=== PATIENT | female | born 1935 | race Caucasian/White ===

== ENCOUNTER 2021-05-20 12:16 | Outpatient (REF) | payer MEDICARE, SELFPAY ==
--- NOTE | ~2021-05-20 | XR_ITS ---
EXAMINATION: KNEE X-RAY CLINICAL INFORMATION: Pain COMPARISON: None TECHNIQUE: Standing AP view of both knees and lateral and sunrise view of the right knee FINDINGS: Right: No fracture or dislocation is seen. There may be mild varus angulation at the knee joint. There is arthritis at the medial femoral tibial and patellofemoral joints with joint space narrowing and osteophyte formation. There is an osteophyte at the quadriceps tendon insertion to the patella. There is a small joint effusion. There is a left knee replacement in satisfactory position. XR/XR knee standing BI IMPRESSION: Right knee arthritis. Satisfactory position of left knee replacement.
--- NOTE | ~2021-05-20 | XR_ITS ---
EXAMINATION: KNEE X-RAY CLINICAL INFORMATION: Pain COMPARISON: None TECHNIQUE: Standing AP view of both knees and lateral and sunrise view of the right knee FINDINGS: Right: No fracture or dislocation is seen. There may be mild varus angulation at the knee joint. There is arthritis at the medial femoral tibial and patellofemoral joints with joint space narrowing and osteophyte formation. There is an osteophyte at the quadriceps tendon insertion to the patella. There is a small joint effusion. There is a left knee replacement in satisfactory position. XR/XR knee RT 2V IMPRESSION: Right knee arthritis. Satisfactory position of left knee replacement.
== END 2021-05-20 12:17 | disposition home or self-care (01) ==
LOC: HO.HOSX 12:16
PROVIDERS: Visit Provider Orthopaedic Surgery
DX: M17.11 Unilateral primary osteoarthritis, right knee (principal); M20.12 Hallux valgus (acquired), left foot
CPT/HCPCS: 20610; 73560; 73565; 99202; J1100

== ENCOUNTER → 2021-06-10 14:24 | Outpatient (BNVA) | payer MEDICARE, SELFPAY | PROVIDERS: PCP Internal Medicine; Visit Provider Orthopaedic Surgery | DX: M17.11 Unilateral primary osteoarthritis, right knee (principal) | CPT/HCPCS: 99212; J7318 ==

== ENCOUNTER → 2021-08-19 14:42 | Outpatient (BNVA) | payer MEDICARE, SELFPAY | PROVIDERS: PCP Internal Medicine; Visit Provider Orthopaedic Surgery | DX: M17.11 Unilateral primary osteoarthritis, right knee (principal) | CPT/HCPCS: 20610; 99212; J1100 ==

== ENCOUNTER → 2021-08-26 09:15 | Outpatient (BNVA) | payer MEDICARE, SELFPAY | PROVIDERS: PCP Internal Medicine; Visit Provider Orthopaedic Surgery | DX: M17.11 Unilateral primary osteoarthritis, right knee (principal); Z96.652 Presence of left artificial knee joint | CPT/HCPCS: 99212 ==

== ENCOUNTER → 2021-09-03 11:46 | Outpatient (BNVA) | payer MEDICARE, SELFPAY | PROVIDERS: Visit Provider Orthopaedic Surgery | DX: M17.11 Unilateral primary osteoarthritis, right knee (principal) | CPT/HCPCS: 99212 ==

== ENCOUNTER → 2021-12-16 14:11 | Outpatient (BNVA) | payer MEDICARE, SELFPAY | PROVIDERS: Visit Provider Orthopaedic Surgery | DX: M17.11 Unilateral primary osteoarthritis, right knee (principal) | CPT/HCPCS: 99212 ==

== ENCOUNTER 2023-03-24 13:53 | Outpatient (AMB) | payer MEDICARE, SELFPAY ==
--- NOTE | 2023-03-24 13:54 | A.OFFVIS_ITS ---
Intake Intake Visit Reasons: EP, PRP injection Right Knee Intake Note: Franny is a 87 year old female who presents today for a right knee PRP injection. Allergies Penicillins Allergy (Severe, Verified 12/16/21 14:15) Hives Sulfa (Sulfonamide Antibiotics) Allergy (Mild, Verified 12/16/21 14:15) Hives HPI EP, PRP injection Right Knee HPI Details Right knee PRP. [facility] Social History (Updated 06/10/21 @ 14:34 by OZZY Watkins) Current occupational status: retired Current occupation: rt hand Physical Exam Extrem Other: skin c/d/i right knee Office Procedures Joint Injection/Drain Joint Injection/Drain Details: 60 ml peripheral blood draw. PRP isolation via centrifuge Injected 6 ml PRP. Site was prepped using aseptic technique. Patient tolerated the procedure well. Primary Site: right knee Approach Used: anterolateral Coding - Large joint Procedure code (CPT) selection complete Assessment & Plan Assessment & Plan (1) Osteoarthritis of right knee: Code(s): M17.11 - Unilateral primary osteoarthritis, right knee Plan: Severe right knee OA. Not a surgical candidate. Has benefitted from injections in the past. Coding Level of Care Code Est Pt Level 2 (15827) Diagnoses Osteoarthritis of right knee M17.11 CPT Codes Coding - Large joint: 94739 - Large joint ([id number])
== END 2023-03-24 15:41 | disposition home or self-care (01) ==
PROVIDERS: Visit Provider Orthopaedic Surgery
DX: M17.11 Unilateral primary osteoarthritis, right knee (principal)
CPT/HCPCS: 0232T; 20610

== ENCOUNTER 2024-02-15 14:12 | Outpatient (AMB) | payer MEDICARE, SELFPAY ==
--- NOTE | 2024-02-15 15:37 | MHC.OFFWIV ---
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 Patient Tobacco Use Status: Never used Tobacco Allergies Penicillins Allergy (Severe, Verified 02/15/24 15:45) Hives Sulfa (Sulfonamide Antibiotics) Allergy (Mild, Verified 02/15/24 15:45) Hives Do you need a note to return to daycare/school/sports/work: No HPI HPI Comments History of Present Illness Details History of Present Illness The patient is an 88-year-old female presenting with her with fall-related injury. The incident occurred yesterday at a restaurant with steps, where she tripped and fell while descending, aiming to see decorations. The patient landed primarily on her left side, attempting to catch her fall with her left hand. Post-fall, she reported pain and swelling in her left hand, wrist, and shoulder. Examination revealed a significant hematoma and swelling in the left hand, accompanied by difficulty in making a fist and performing certain wrist and shoulder movements. Moreover, no dizziness or lightheadedness was experienced prior to the fall, and she is not on any blood thinners. There is no history of loss of consciousness or head injury associated with the fall. The patient noted increased difficulty with certain movements of her hand and shoulder. She does not have a history mentioned of previous falls or similar injuries. Physical Exam General: Cooperative, healthy appearing, comfortable, no acute distress and well developed Orientation: Patient oriented x3 Limitations: Limited movement in left wrist and shoulder due to pain Head: Normal to inspection Ears: Hearing impaired Nose: Normal external nose present Face and sinus: Normal facial exam Eyes: Appearance normal, both eyes and all related structures Neck: Normal visual inspection and Yes full ROM Respiratory: Normal respiratory effort and able to speak in complete sentences. Clear to auscultation bilaterally Cardiovascular: Regular rate and rhythm. Normal S1 and S2 Skin: Edema and hematoma noted on left hand and wrist Neuro: Patient oriented x3 Extremities: left wrist, moderate-sized hematoma on dorsal aspect of radial side at the base of the thumb. Thumb has full range of motion however with pain. Remainder of fingers have full range of motion and neurovascularly intact. Patient has limited range of motion of her wrist, notably with flexion extension and ulnar and radial deviation. Left Elbow has full range of motion and no tenderness to palpation. Left shoulder, patient unable to forward flex past 90 degrees, negative beer can, negative belly lift-off, positive posterior lift-off. TTP at AC joint and insertion of biceps PFSH Social History (Updated 06/10/21 @ 14:34 by OZZY Watkins) Patient Tobacco Use Status: Never used Tobacco Current occupational status: retired Current occupation: rt hand Review of Systems Const All systems reviewed & are unremarkable except as noted in HPI and below Physical Exam Vital Signs: Last Vital Signs Pulse 96 02/15/24 15:44 BP 124/68 02/15/24 15:44 Pulse Ox 97 02/15/24 15:44 Oxygen Delivery Method Room Air 02/15/24 15:44 Assessment & Plan Assessment & Plan (1) Elbow pain, left: Code(s): M25.522 - Pain in left elbow Plan: Plan - Obtain x-rays of the left wrist, elbow, and shoulder to assess for potential fractures or dislocations. - Evaluate severity of any musculoskeletal injuries based on the imaging outcomes. - My review of x-rays show no fx or dislocation of left shoulder, left elbow or wrist. Likely sprained, will put wrist in velcro splint and shoulder in sling. Advised not to use either for more than 5-7 days as this could increase risk of frozen shoulder and decreased mobility of the wrist and elbow. Patient can use ice and Aleve for pain. - Provide pain management and instruct the patient to report any significant increase in pain or restriction of movement. - Advise the patient on safety precautions to prevent future falls. - Patient should follow up with her PCP for referral to Orthopedics. Patient was informed and verbally consented to the use of an ambient scribe for clinic note documentation during this visit. (2) Fall: Code(s): W19.XXXA - Unspecified fall, initial encounter Qualifiers: Encounter type: initial encounter Qualified Code(s): W19.XXXA - Unspecified fall, initial encounter Plan: As above (3) Shoulder pain, left: Code(s): M25.512 - Pain in left shoulder Qualifiers: Chronicity: acute Qualified Code(s): M25.512 - Pain in left shoulder Plan: As above (4) Wrist pain, left: Code(s): M25.532 - Pain in left wrist Plan: As above (5) Sprain of shoulder, left: Code(s): S43.402A - Unspecified sprain of left shoulder joint, initial encounter Qualifiers: Encounter type: initial encounter Shoulder sprain type: unspecified sprain Qualified Code(s): S43.402A - Unspecified sprain of left shoulder joint, initial encounter Plan: As above (6) Sprain of wrist, left: Code(s): S63.502A - Unspecified sprain of left wrist, initial encounter Qualifiers: Encounter type: initial encounter Qualified Code(s): S63.502A - Unspecified sprain of left wrist, initial encounter Plan: As above Orders: Orders XR shoulder LT min 2V Today M25.512 - Pain in left shoulder, W19.XXXA - Unspecified fall, initial encounter XR elbow LT min 3V Today M25.522 - Pain in left elbow, W19.XXXA - Unspecified fall, initial encounter Coding Level of Care Code New Pt Level 5 (53526) Procedure Only Diagnoses Elbow pain, left M25.522 Fall, initial encounter W19.XXXA Encounter type: initial encounter Acute pain of left shoulder M25.512 Chronicity: acute Wrist pain, left M25.532 Sprain of left shoulder, unspecified shoulder sprain type, initial encounter S43.402A Encounter type: initial encounter Shoulder sprain type: unspecified sprain Sprain of left wrist, initial encounter S63.502A Encounter type: initial encounter
[2024-02-15 15:44] VITALS: BP 124/68; PULSE 96; O2SAT 97
== END 2024-02-15 17:00 | disposition home or self-care (01) ==
PROVIDERS: Visit Provider Physician Assistant
DX: S43.402A Unspecified sprain of left shoulder joint, initial encounter (principal); S63.502A Unspecified sprain of left wrist, initial encounter; M25.522 Pain in left elbow; W19.XXXA Unspecified fall, initial encounter; M25.512 Pain in left shoulder; M25.532 Pain in left wrist

== ENCOUNTER 2024-02-15 14:12 | Outpatient (REF) | payer MEDICARE, SELFPAY ==
--- NOTE | ~2024-02-15 | XR_ITS ---
EXAMINATION: XR WRIST, LEFT CLINICAL INFORMATION: M25.532 - Pain in left wrist COMPARISON: None available. TECHNIQUE: PA, lateral, and oblique views of the left wrist. FINDINGS: Severe first CMC arthritis. Mild-moderate triscaphe joint arthritis. There appears to be intercarpal joint space narrowing as well. MCP joint space narrowing. No evidence of acute fracture or dislocation. Soft tissue swelling present. XR/XR wrist LT min 3V IMPRESSION: Arthritis present. Severe first CMC arthritis. No radiographic evidence of acute fracture. Electronically signed by: Sher Berry MD 02/16/2024 01:49 PM JOSE
--- NOTE | ~2024-02-15 | XR_ITS ---
EXAMINATION: XR ELBOW, LEFT CLINICAL INFORMATION: M25.522 - Pain in left elbow COMPARISON: None available. TECHNIQUE: AP, lateral, and oblique views of the left elbow. FINDINGS: Alignment is anatomic. No visible acute fracture or dislocation. No significant joint effusion is seen. No suspicious lytic or blastic osseous lesion. No abnormal soft tissue calcification. XR/XR elbow LT min 3V IMPRESSION: No radiographic evidence of acute fracture. Electronically signed by: Sher Berry MD 02/16/2024 01:56 PM EST
--- NOTE | ~2024-02-15 | XR_ITS ---
EXAMINATION: XR SHOULDER, LEFT CLINICAL INFORMATION: W19.XXXA - Unspecified fall, initial encounter COMPARISON: None available. TECHNIQUE: Three views of the left shoulder. FINDINGS: Mild-moderate acromioclavicular arthritis. Mild-moderate glenohumeral joint arthritis, with joint space loss, acetabular subchondral cysts and sclerosis. No visible acute fracture or dislocation. No abnormal soft tissue calcification. XR/XR shoulder LT min 2V IMPRESSION: Mild-moderate acromioclavicular and glenohumeral arthritis. Electronically signed by: Sher Berry MD 02/16/2024 01:54 PM JOSE
== END 2024-02-15 14:13 | disposition home or self-care (01) ==
LOC: HO.HMGCX 14:12
PROVIDERS: PCP Internal Medicine; Visit Provider Physician Assistant
DX: M25.512 Pain in left shoulder (principal); M25.522 Pain in left elbow; M25.532 Pain in left wrist; S43.402A Unspecified sprain of left shoulder joint, initial encounter; S63.502A Unspecified sprain of left wrist, initial encounter; W19.XXXA Unspecified fall, initial encounter; M13.88 Other specified arthritis, other site; M13.812 Other specified arthritis, left shoulder
CPT/HCPCS: 73030; 73080; 73110; 99202

== ENCOUNTER 2024-04-02 10:21 | Outpatient (REF) | payer MEDICARE, SELFPAY ==
--- NOTE | ~2024-04-02 | XR_ITS ---
EXAMINATION: XR SHOULDER, LEFT CLINICAL INFORMATION: M25.512 - Pain in left shoulder COMPARISON: 02/15/2024. TECHNIQUE: Three views of the left shoulder. FINDINGS: No fracture, dislocation, or suspicious bone lesion. No malalignment. 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 Small undersurface spur is present. There is a small subacromial osteophyte with a minimally laterally downsloping acromion. There is no significant subacromial space narrowing. Remainder the bony structures appear intact. There is a large hiatus hernia in the retrocardiac region with air-fluid level. Ectasia and calcification of the aorta. XR/XR shoulder LT min 2V IMPRESSION: 1. No acute findings left shoulder. 2. 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 Electronically signed by: Ramez Carbajal MD 04/03/2024 03:43 PM JOSE
--- OUTSIDE RECORDS SUMMARY | 2024-04-02 11:13 | XMS_ITS | Encounter Summary ---
Author Organization [facility] Address [address] [place] [address] Care Team Providers Care Capacitor Tester Name Role Phone Mansi Carias MD Primary Care Provider [phone] Jennie Milian MD Unavailable [phone] Encounter Details Date Type Department Care Team Description 11/16/2016 Workers Compensation Specialist Report Medical Records [address] [place] [id number] Abstract, Provider Social History Tobacco Use Types Packs/Day Years Used Date Smoking Tobacco: Former Smokeless Tobacco: Never Comments:quit 1985 Alcohol Use Standard Drinks/Week Comments Yes 0 (1 standard drink = 0.6 oz pur e alcohol) a glass of wine, now and then Sex Assigned at Date Recorded Not on file Job Start Date Occupation Industry Not on file Not on file Not on file documented as of this encounter Plan of Treatment Not on file documented as of this encounter Visit Diagnoses Not on filedocumented in this encounter Care Teams Capacitor Tester Relationship Specialty Start Date End Date Mansi Carias MD [address] [place] [address] [phone] PCP - General 07/07/06 Jennie Milian MD [address] [place] [place] [address] [phone] Specialist Cardiology 09/13/22 documented as of this encounter
--- OUTSIDE RECORDS SUMMARY | 2024-04-02 11:13 | XMS_ITS | Encounter Summary ---
Author Organization [facility] Address [address] [place] [address] Care Team Providers Care Navy Seal Name Role Phone Mansi Carias MD Primary Care Provider [phone] Jennie Milian MD Unavailable [phone] Encounter Details Date Type Department Care Team Description 07/18/2016 Wellness Visit Medical Records [address] [place] [address] Mansi Carias MD [address] [place] [address] [phone] Social History Tobacco Use Types Packs/Day Years [...] on filedocumented in this encounter Care Teams Navy Seal Relationship Specialty Start Date End Date Mansi Carias MD [address] [place] [address] [phone] PCP - General 07/07/06 Jennie Milian MD [address] [place] [phone] Specialist Cardiology 09/13/22 documented as of this encounter
--- OUTSIDE RECORDS SUMMARY | 2024-04-02 11:13 | XMS_ITS | Encounter Summary ---
Author Organization [facility] Address [address] [place] [address] Care Team Providers Care Mat Machine Operator Name Role Phone Mansi Carias MD Primary Care Provider [phone] Jennie Milian MD Unavailable [phone] Encounter Details Date Type Department Care Team Description 01/21/2013 Guide Delegate Report Medical Records [address] [place] [address] David Russ Social History Tobacco Use Types Packs/Day Years [...] on filedocumented in this encounter Care Teams Mat Machine Operator Relationship Specialty Start Date End Date Mansi Carias MD [address] [place] [address] [phone] PCP - General 07/07/06 Jennie Milian MD [address] [place] [address] [phone] Specialist Cardiology 09/13/22 documented as of this encounter
--- OUTSIDE RECORDS SUMMARY | 2024-04-02 11:14 | XMS_ITS | Encounter Summary ---
Author Organization [facility] Address [address] [place] [address] Care Team Providers Care Transportation Logistics Internship Name Role Phone Mansi Carias MD Primary Care Provider [phone] Jennie Milian MD Unavailable [phone] Encounter Details Date Type Department Care Team Description 10/21/2009 Streaming Media Specialist Report Medical Records [address] [place] [address] Rebel Johnson Social History Tobacco Use Types Packs/Day Years Used Date Smoking Tobacco: Former Comments:quit 1985 Alcohol Use Standard Drinks/Week Comments [...] on filedocumented in this encounter Care Teams Transportation Logistics Internship Relationship Specialty Start Date End Date Mansi Carias MD [address] [place] [phone] PCP - General 07/07/06 Jennie Milian MD [address] [place] [address] [phone] Specialist Cardiology 09/13/22 documented as of this encounter
--- OUTSIDE RECORDS SUMMARY | 2024-04-02 11:14 | XMS_ITS | Encounter Summary ---
Author Organization [facility] Address [address] [place] [address] Care Team Providers Care Airport Clerk Name Role Phone Mansi Carias MD Primary Care Provider [phone] Jennie Milian MD Unavailable [phone] Reason for Visit * Reason Onset Date Comments Prior Authorization 03/16/2023 Encounter Details Date Type Department Care Team Description 03/16/2023 Telephone Pulmonology - [place] [address] [facility] [address] [place] [address] Whitney Hong MD [address] [place] [address] Prior Authorization Social History Tobacco Use Types Packs/Day Years Used Date Smoking Tobacco: Former Cigarettes 2.5 24 Smokeless Tobacco: Never Comments:quit 1985 Alcohol Use Standard Drinks/Week Comments Yes 0 (1 standard drink = 0.6 oz pur e alcohol) a glass of wine, now and then Sex Assigned at Date Recorded Not on file Job Start Date Occupation Industry Not on file Not on file Not on file documented as of this encounter Miscellaneous Notes * Telephone Encounter - Ailyn Holman M.A. - 04/19/2023 1:25 PM EST Denied for quantity limit Ailyn Holman Prior Auth Dep Ext [id number] * Telephone Encounter - Ailyn Holman M.A. - 03/17/2023 3:48 PM EST Insurance wanted more info Faxed back Ailyn Holman Prior Auth Dep Ext [id number] * Telephone Encounter - Ailyn Holman M.A. - 03/17/2023 1:33 PM EST Auth sent with cover my meds Dx:asthma Tried symbicort Cont of care Ailyn Holman Prior Auth Dep Ext [id number] * Telephone Encounter - Roxana Bautista - 03/16/2023 11:33 AM EST PRIOR AUTHORIZATION FOR FLUTICASONE SALMETEROL 113-14 MCG/ACT AEROSOL POWDER JOSÉ: [id number] documented in this encounter Plan of Treatment Not on file documented as of this encounter Visit Diagnoses Not on filedocumented in this encounter Care Teams Airport Clerk Relationship Specialty Start Date End Date Mansi Carias MD [address] [place] [address] [phone] PCP - General 07/07/06 Jennie Milian MD [address] [place] [address] [phone] Specialist Cardiology 09/13/22 documented as of this encounter
--- OUTSIDE RECORDS SUMMARY | 2024-04-02 11:14 | XMS_ITS | Encounter Summary ---
Author Organization [facility] Address [address] [place] [address] Care Team Providers Care Fixed Income Portfolio Manager Name Role Phone Mansi Carias MD Primary Care Provider [phone] Jennie Milian MD Unavailable [phone] Reason for Visit * Reason Onset Date Comments Prior Authorization 06/01/2022 Encounter Details Date Type Department Care Team Description 06/01/2022 Telephone Pulmonology - [place] [address] [facility] [address] [place] [address] Whitney Hong MD [address] [place] [address] Prior Authorization Social History Tobacco [...] encounter Miscellaneous Notes * Telephone Encounter - Whitney Hong MD - 06/02/2022 6:26 PM EDT Resend script * Telephone Encounter - Dov Barroso CMA - 06/02/2022 8:06 AM EDT Please do rx script JAN 03/29/22 NOV 09/26/22 * Telephone Encounter - Krissy López - 06/01/2022 1:24 PM EDT Prior Authorization for Medication-do not complete and send this encounter unless you have the fax from the pharmacy. Is this a Cover My Meds request: Yes -- Moore Code [id number] Name of Medication FLUTICASONE-SALMETEROL Dose of Medication 113-14 MCG/ACT AEROSOL POWDER What is the RX # from the faxed refill? How does patient take this med? What Pharmacy did the fax come from: [facility] Pharmacy fax #: [phone] [employer] Information from fax: What Prescription Plan does the patient have? BIN/PCN if applicable: Cardholder ID: Person Code: Relationship Code: Help desk phone: documented in this encounter Plan of Treatment Not on file documented as of this encounter Visit Diagnoses Diagnosis Mild persistent asthma, unspecified whether complicated- Primary documented in this encounter Care Teams Fixed Income Portfolio Manager Relationship Specialty Start Date End Date Mansi Carias MD [address] [place] [phone] PCP - General 07/07/06 Jennie Milian MD [address] [place] [phone] Specialist Cardiology 09/13/22 documented as of this encounter
--- OUTSIDE RECORDS SUMMARY | 2024-04-02 11:14 | XMS_ITS | Encounter Summary ---
Author Organization [facility] Address [address] [place] [address] Care Team Providers Care Game Engineer Name Role Phone Mansi Carias MD Primary Care Provider [phone] Jennie Milian MD Unavailable [phone] Encounter Details Date Type Department Care Team Description 09/22/2017 Painting Manager Report Medical Records [address] [place] [address] Anthony Brown MD Social History Tobacco Use Types Packs/Day Years [...] on filedocumented in this encounter Care Teams Game Engineer Relationship Specialty Start Date End Date Mansi Carias MD [address] [place] [address] [phone] PCP - General 07/07/06 Jennie Milian MD [address] [place] [address] [phone] Specialist Cardiology 09/13/22 documented as of this encounter
--- OUTSIDE RECORDS SUMMARY | 2024-04-02 11:14 | XMS_ITS | Encounter Summary ---
Author Organization [facility] Address [address] [place] [address] Care Team Providers Care Flat Bed Knitter Name Role Phone Mansi Carias MD Primary Care Provider [phone] Jennie Milian MD Unavailable [phone] Encounter Details Date Type Department Care Team Description 12/15/2015 Healthcare Interpreter Report Medical Records [address] [place] [phone] Fausto Armando MD Social History Tobacco Use Types Packs/Day [...] on filedocumented in this encounter Care Teams Flat Bed Knitter Relationship Specialty Start Date End Date Mansi Carias MD [address] [place] [address] [phone] PCP - General 07/07/06 Jennie Milian MD [address] [place] [address] [phone] Specialist Cardiology 09/13/22 documented as of this encounter
--- OUTSIDE RECORDS SUMMARY | 2024-04-02 11:14 | XMS_ITS | Encounter Summary ---
Author Organization [facility] Address [address] [place] [address] Care Team Providers Care Freezer Operator Name Role Phone Mansi Carias MD Primary Care Provider [phone] Jennie Milian MD Unavailable [phone] Encounter Details Date Type Department Care Team Description 10/21/2022 Telephone Adult Medicine [address] [phone] Mansi Carias MD [address] [place] [address] [phone] Social History Tobacco Use Types Packs/Day Years [...] file Not on file Not on file COVID-19 Exposure Response Date Recorded In the last 10 days, have jason pink been in contact with someone who was confirmed or suspected to have Coronavirus/COVID-19? No / Unsure 10/12/2022 2:23 PM EDT documented as of this encounter Plan of Treatment Not on file documented as of this encounter Visit Diagnoses Not on filedocumented in this encounter Care Teams Freezer Operator Relationship Specialty Start Date End Date Mansi Carias MD [address] [place] [phone] PCP - General 07/07/06 Jennie Milian MD [address] [place] [phone] Specialist Cardiology 09/13/22 documented as of this encounter
--- OUTSIDE RECORDS SUMMARY | 2024-04-02 11:14 | XMS_ITS | Encounter Summary ---
Author Organization [facility] Address [address] [place] [address] Care Team Providers Care Manager Of Quality Name Role Phone Mansi Carias MD Primary Care Provider [phone] Jennie Milian MD Unavailable [phone] Encounter Details Date Type Department Care Team Description 03/23/2016 Business Doc Medical Records [address] [place] [address] Abstract, Provider Social History Tobacco Use Types [...] on filedocumented in this encounter Care Teams Manager Of Quality Relationship Specialty Start Date End Date Mansi Carias MD [address] [place] [address] [phone] PCP - General 07/07/06 Jennie Milian MD [address] [place] [address] [phone] Specialist Cardiology 09/13/22 documented as of this encounter
--- OUTSIDE RECORDS SUMMARY | 2024-04-02 11:14 | XMS_ITS | Encounter Summary ---
Author Organization [facility] Address [address] [place] [address] Care Team Providers Care Valving Machine Operator Name Role Phone Mansi Carias MD Primary Care Provider [phone] Jennie Milian MD Unavailable [phone] Encounter Details Date Type Department Care Team Description 04/19/2010 Attendant [facility] Report Medical Records [address] [place] [address] Daniel June MD Social History Tobacco Use Types Packs/Day [...] on filedocumented in this encounter Care Teams Valving Machine Operator Relationship Specialty Start Date End Date Mansi Carias MD [address] [place] [address] [phone] PCP - General 07/07/06 Jennie Milian MD [address] [place] [address] [phone] Specialist Cardiology 09/13/22 documented as of this encounter
--- OUTSIDE RECORDS SUMMARY | 2024-04-02 11:14 | XMS_ITS | Encounter Summary ---
Author Organization [facility] Address [address] [place] [address] Care Team Providers Care Change Director Name Role Phone Mansi Carias MD Primary Care Provider [phone] Jennie Milian MD Unavailable [phone] Encounter Details Date Type Department Care Team Description 10/17/2022 Orders Only Adult Medicine [address] [phone] Mansi Carias MD [address] [place] [address] [phone] Aortic root dilatation (HCC) (Primary Dx) Social History Tobacco Use Types Packs/Day Years [...] Recorded In the last 10 days, have yo u been in contact with someone who was confirmed or suspected to have Coronavirus/COVID-19? No / Unsure 10/12/2022 2:23 PM EDT documented as of this encounter Plan of Treatment Not on file documented as of this encounter Visit Diagnoses Diagnosis Aortic root dilatation (HCC)- Primary Aortic ectasia, unspecified site documented in this encounter Care Teams Change Director Relationship Specialty Start Date End Date Mansi Carias MD [address] [place] [address] [phone] PCP - General 07/07/06 Jennie Milian MD [address] [place] [address] [phone] Specialist Cardiology 09/13/22 documented as of this encounter
--- OUTSIDE RECORDS SUMMARY | 2024-04-02 11:14 | XMS_ITS | Encounter Summary ---
Author Organization [facility] Address [address] [place] [address] Care Team Providers Care Diamond Die Polisher Name Role Phone Mansi Carias MD Primary Care Provider [phone] Jennie Milian MD Unavailable [phone] Encounter Details Date Type Department Care Team Description 07/30/2009 Business Doc Medical Records [address] [place] [address] 0[address] Abstract, Provider Social History Tobacco Use Types [...] on filedocumented in this encounter Care Teams Diamond Die Polisher Relationship Specialty Start Date End Date Mansi Carias MD [address] [place] [address] [phone] PCP - General 07/07/06 Jennie Milian MD [address] [place] [address] [phone] Specialist Cardiology 09/13/22 documented as of this encounter
--- OUTSIDE RECORDS SUMMARY | 2024-04-02 11:14 | XMS_ITS | Encounter Summary ---
Author Organization [facility] Address [address] [place] [address] Care Team Providers Care Devil Dog Name Role Phone Mansi Carias MD Primary Care Provider [phone] Jennie Milian MD Unavailable [phone] Encounter Details Date Type Department Care Team Description 08/19/2009 Lathe Winder Report Medical Records [address] [place] [address] Rebel Johnson Social History Tobacco Use Types [...] on filedocumented in this encounter Care Teams Devil Dog Relationship Specialty Start Date End Date Mansi Carias MD [address] [place] [address]20 PCP - General 07/07/06 Jennie Milian MD [address] [place] [address] [phone] Specialist Cardiology 09/13/22 documented as of this encounter
--- OUTSIDE RECORDS SUMMARY | 2024-04-02 11:14 | XMS_ITS | Encounter Summary ---
Author Organization [facility] Address [address] [place] [address] Care Team Providers Care Card Folder Name Role Phone Mansi Carias MD Primary Care Provider [phone] Jennie Milian MD Unavailable [phone] Reason for Visit * Reason Comments E-prescribe Rx Request Encounter Details Date Type Department Care Team Description 04/11/2022 Refill Adult Medicine [facility] [address] [place] [address] [phone] Bruno Townsend, PAJennaC [address] [place] [address] [phone] E-prescribe Rx Request Social History Tobacco Use Types Packs/Day Years [...] suspected to have Coronavirus/COVID-19? No / Unsure 03/29/2022 2:00 PM EST documented as of this encounter Miscellaneous Notes * Telephone Encounter - Amelie Godinez M.A. - 04/12/2022 2:04 PM EST Last office visit 03/14/22 Next office visit 09/12/22 Lab Results Component Value Date ALB 3.8 06/19/2018 SGOT 17 02/03/2021 SGPT 16 02/03/2021 TBILI 0.5 06/19/2018 ALKPHOS 65 06/19/2018 TP 6.4 06/19/2018 * Telephone Encounter - Nurys Bowen - 04/12/2022 1:55 PM EST PATIENT STATES THEY DO NO HAVE ANYMORE MEDICATION. Patient would like script to be: E-PRESCRIBED/FAXED TO PHARMACY WHEN WAS THE PATIENT'S LAST APPOINTMENT IN ADULT MEDICINE? 03/14/22 WHEN WAS THE LAST TIME THE PATIENT SAW THEIR PCP? Same as above Does patient have an upcoming appointment? Yes 09/12/22 (THE MEDICATION REQUESTED IS ON THE MED LIST ABOVE) All of the medications requested were on the CURRENT MEDS list Did you check the Pharmacy information above?: YES Patient wants: 30 -day supply Is this a mail order prescription request ? NO If the refill is from a FAXED refill request what is the RX # listed on the fax? N/A Patients current insurance carrier is: [place] / [place] / Product Type: MEDICARE [id number] documented in this encounter Plan of Treatment Not on file documented as of this encounter Visit Diagnoses Not on filedocumented in this encounter Care Teams Card Folder Relationship Specialty Start Date End Date Mansi Carias MD [address] [place] [address] [phone] PCP - General 07/07/06 Jennie Milian MD [address] [place] [address] [phone] Specialist Cardiology 09/13/22 documented as of this encounter
--- OUTSIDE RECORDS SUMMARY | 2024-04-02 11:14 | XMS_ITS | Encounter Summary ---
Author Organization [facility] Address [address] [place] [address] Care Team Providers Care Account Manager Name Role Phone Mansi Carias MD Primary Care Provider [phone] Jennie Milian MD Unavailable [phone] Encounter Details Date Type Department Care Team Description 08/06/2014 Hand Binder Cutter Report Medical Records [address] [place] [address] Slava Melvin Social History Tobacco Use Types Packs/Day Years [...] on filedocumented in this encounter Care Teams Account Manager Relationship Specialty Start Date End Date Mansi Carias MD [address] [place] [address] [phone] PCP - General 07/07/06 Jennie Milian MD [address] [place] [address] [phone] Specialist Cardiology 09/13/22 documented as of this encounter
--- OUTSIDE RECORDS SUMMARY | 2024-04-02 11:14 | XMS_ITS | Encounter Summary ---
Author Organization [facility] Address [address] [place] [address] Care Team Providers Care Residential Nurse Name Role Phone Mansi Carias MD Primary Care Provider [phone] Jennie Milian MD Unavailable [phone] Encounter Details Date Type Department Care Team Description 08/29/2022 Hospital Medical Records [address] [place] [address] [facility] Social History Tobacco Use Types Packs/Day Years [...] on file documented as of this encounter Procedures Procedure Name Priority Date/Time Associated Diagnosis Comments OUTSIDE EKG Routine 08/29/2022 OUTSIDE LAB Routine 08/29/2022 OUTSIDE LAB Routine 08/29/2022 documented in this encounter Results * OUTSIDE LAB (08/29/2022) Provider Abstract LAB * OUTSIDE LAB (08/29/2022) Provider Abstract LAB * OUTSIDE EKG (08/29/2022) Provider Abstract CARDIOLOGY documented in this encounter Visit Diagnoses Not on filedocumented in this encounter Care Teams Residential Nurse Relationship Specialty Start Date End Date Mansi Carias MD [address] [place] [address] [phone] PCP - General 07/07/06 Jennie Milian MD [address] [place] [phone] Specialist Cardiology 09/13/22 documented as of this encounter
--- OUTSIDE RECORDS SUMMARY | 2024-04-02 11:14 | XMS_ITS | Encounter Summary ---
Author Organization [facility] Address [address] [place] [address] Care Team Providers Care Manager Van Name Role Phone Mansi Carias MD Primary Care Provider [phone] Jennie Milian MD Unavailable [phone] Reason for Visit * Reason Comments E-prescribe Rx Request Encounter Details Date Type Department Care Team Description 07/08/2018 Refill Adult Medicine [facility] [address] [place], [place] [phone] [facility] [address] [place], [place] [phone] E-prescribe Rx Request Social History Tobacco Use [...] Telephone Encounter - Amelie Godinez M.A. - 07/09/2018 9:05 AM EDT Lab Results Component Value Date NA 143 06/19/2018 K 3.9 06/19/2018 CO2 25 06/19/2018 CL 110 06/19/2018 BUN 17 06/19/2018 CREAT 1.44 06/19/2018 GLU 107 06/19/2018 CA 8.5 06/19/2018 GFR 35 06/19/2018 * Telephone Encounter - Alea Munoz - 07/08/2018 1:54 PM EDT Patient would like script to be: E-PRESCRIBED/FAXED TO PHARMACY WHEN WAS THE PATIENT'S LAST APPOINTMENT IN ADULT MEDICINE? 07/02/18 WHEN WAS THE LAST TIME THE PATIENT SAW THEIR PCP? Same as above Does patient have an upcoming appointment? Yes 12/03/18 (THE MEDICATION REQUESTED IS ON THE MED LIST ABOVE) All of the medications requested were on the CURRENT MEDS list Did you check the Pharmacy information above?: YES Patient wants: 90 -day supply Is this a mail order prescription request ? NO If the refill is from a FAXED refill request what is the RX # listed on the fax? N/A Patients current insurance carrier is: [place] / [place] / Product Type: MEDICARE [id number] documented in this encounter Plan of Treatment Not on file documented as of this encounter Visit Diagnoses Not on filedocumented in this encounter Care Teams Manager Van Relationship Specialty Start Date End Date Mansi Carias MD [address] [place] [address] PCP - General 07/07/06 Jennie Milian MD [address] [place] [phone] Specialist Cardiology 09/13/22 documented as of this encounter
--- OUTSIDE RECORDS SUMMARY | 2024-04-02 11:14 | XMS_ITS | Encounter Summary ---
Author Organization [facility] Address [address] [place] [address] Care Team Providers Care Pbx Supervisor Name Role Phone Mansi Carias MD Primary Care Provider [phone] Jennie Milian MD Unavailable [phone] Encounter Details Date Type Department Care Team Description 08/26/2021 Information Technology Coordinator Report Medical Records [address] [place] [address] [place] Hills MD Social History Tobacco Use Types Packs/Day [...] In the last 10 days, have jason u been in contact with someone who was confirmed or suspected to have Coronavirus/COVID-19? No / Unsure 08/18/2021 12:54 PM EDT documented as of this encounter Plan of Treatment Not on file documented as of this encounter Visit Diagnoses Not on filedocumented in this encounter Care Teams Pbx Supervisor Relationship Specialty Start Date End Date Mansi Carias MD [address] [place] [address] [phone] PCP - General 07/07/06 Jennie Milian MD [address] [place] [address] [phone] Specialist Cardiology 09/13/22 documented as of this encounter
--- OUTSIDE RECORDS SUMMARY | 2024-04-02 11:14 | XMS_ITS | Encounter Summary ---
Author Organization [facility] Address [address] [place] [address] Care Team Providers Care Tearoom Host/Hostess Name Role Phone Mansi Carias MD Primary Care Provider [phone] Jennie Milian MD Unavailable [phone] Encounter Details Date Type Department Care Team Description 11/21/2017 Automotive Maintenance Technician Report Medical Records [address] [place] [address] 44[address] Abstract, Provider Social History Tobacco Use Types [...] on filedocumented in this encounter Care Teams Tearoom Host/Hostess Relationship Specialty Start Date End Date Mansi Carias MD [address] [place] [address] [phone] PCP - General 07/07/06 Jennie Milian MD [address] [place] [address] [phone] Specialist Cardiology 09/13/22 documented as of this encounter
--- OUTSIDE RECORDS SUMMARY | 2024-04-02 11:14 | XMS_ITS | Clinical Summary ---
Author Organization [facility], Address [address] [place] [address] [place] [address] Phone Care Team Providers Care Mill Tender Second Operator Name Role Phone Mansi Carias MD Primary Care Provider [phone] Allergies Active Allergy Reactions Criticality Noted Date Comments Penicillins Rash Low 05/17/2019 Sulfa Antibiotics Rash,Itching Medium 05/29/2017 Medications sucralfate (CARAFATE) 1 g tablet Take 1 tablet by mouth 3 (three) times a day Active pravastatin (PRAVACHOL) 40 MG tablet Take 1 tablet by mouth 1 (one) time each day 7 Active oxybutynin XL (DITROPAN-XL) 10 MG 24 hr tablet Take 1 tablet by mouth 1 (one) time each day 6 Active [place] 3 1000 MG capsule Take 1,000 mg by mouth 1 (one) time each day Active montelukast (SINGULAIR) 10 MG tablet Take 1 tablet by mouth at bed time Active escitalopram (LEXAPRO) 10 MG tablet Take 10 mg by mouth 1 (one) time each day 6 Active buPROPion SR (WELLBUTRIN SR) 150 MG 12 hr tablet Take 150 mg by mouth 2 (two) times a day 7 Active amLODIPine (NORVASC) 5 MG tablet Take 5 mg by mouth 7 Active albuterol (2.5 MG/3ML) 0.083% nebulizer solution Take 1 vial by mouth every 4 (four) hours Active Fluad Quadrivalent 0.5 ML prefilled syringe ADM 0.5ML IM UTD 0 Active cholecalciferol (VITAMIN D-3) 25 MCG (1000 UT) tablet Take 1 tablet by mouth Active pantoprazole (PROTONIX) 40 MG EC tablet TAKE 1 TABLET(40 MG) BY MOUTH TWICE DAILY. DO NOT CRUSH, CHEW, OR SPLIT 180 tablet 3 2 Active budesonide-formot armen (Symbicort) 160-4.5 MCG/ACT inhaler Inhale 2 puffs in the morning and 2 puffs in the evening. 1 Inhaler 11 3 Active Active Problems Problem Noted Date Diagnosed Date Ulcer of esophagus 07/12/2017 Overview (05/17/2019): Had EGDx2 after PPI, ulcer resoled, per GI ok to use PPI as needed Essential hypertension 05/02/2016 Stage 3b chronic kidney disease 01/21/2013 Overview (03/09/2020): Update for Diagnosis Load Cyst of thyroid 09/18/2006 Pure hypercholesterolemia 09/18/2006 Asthma 07/10/2006 Overview (05/17/2019): Follows with instrumentation engineer in [place], Dr. Egan Immunizations Name Administration Dates Next Due H1N1 Nasal 11/04/2017, 5,11/21/2013,2011 Influenza Split High Dose Preservative Free IM 12/27/2018,12/04/2016 Influenza TIV (IM) 11/27/2010, 0,12/12/2007,2006 Influenza Vaccine, Quadrival ent, Adjuvanted 11/10/2019 Influenza, Quadrivalent, Pre servative Free 12/11/2020,02/19/2020 Pfizer SARS-COV-2 01/19/2021,11/13/2020 Pneumococcal Conjugate 13-Valent 12/27/2017 Pneumococcal, Unspecified 12/12/2014,12/08/2011 Shingrix 01/10/2020 Zoster 11/10/2019,08/04/2011 Family History Medical History Relation Comments Cancer Child daughter thyroid , lymphoma Heart disease Father CA, CAD Cancer Mother basal cell Hypertension Mother Cancer Sibling brother's one wi th colon and the other with lung Relation Status Comments Child Father Mother Sibling Social History Tobacco Use Types Packs/Day Years Used Date Smoking Tobacco: Former Smokeless Tobacco: Never Comments Unknown Sex and Gender Information Value Date Recorded Sex Assigned at Not on file Legal Sex Female 4:33 PM EST Gender Identity Not on file Sexual Orientation Not on file Last Filed Vital Signs Vital Sign Reading Time Taken Comments Blood Pressure 148/78 09/01/2021 4:16 PM EDT Pulse - - Temperature - - Respiratory Rate - - Oxygen Saturation - - Inhaled Oxygen Concentration - - Weight 74.4 kg (164 lb) 09/19/2018 12:00 PM EDT Height 160 cm (5' 3 ) 09/19/2018 12:00 PM EDT Body Mass Index 29.05 09/19/2018 12:00 PM EDT Plan of Treatment Health Maintenance Due Date Last Done Comments Pneumococcal Vaccine: 65+ Years (2 of 2 - PPSV23 or PCV20) 02/21/2018 12/27/2017, 12/12/2014, 12/08/2011 Influenza Vaccine (#1) 2023 , 02/19/2020, 11/10/2019, Additional history exists Hepatitis B Vaccine Aged Out No longe r eligible based on patient's age to complete this topic Insurance MEDICARE [facility] Care Teams Mill Tender Second Operator Relationship Specialty Start Date End Date Mansi Carias MD PCP - General 01/08/19
--- OUTSIDE RECORDS SUMMARY | 2024-04-02 11:14 | XMS_ITS | Encounter Summary ---
Author Organization [facility] Address [address] [place] [address] Care Team Providers Care Child Welfare Specialist Name Role Phone Mansi Carias MD Primary Care Provider [phone] Jennie Milian MD Unavailable [phone] Encounter Details Date Type Department Care Team Description 04/19/2010 Systems Security Consultant Report Medical Records [address] [place] [address] 29164 Daniel June MD Social History Tobacco Use [...] on filedocumented in this encounter Care Teams Child Welfare Specialist Relationship Specialty Start Date End Date Mansi Carias MD [address] [place] [address] [phone] PCP - General 07/07/06 Jennie Milian MD [address] [place] [address] [phone] Specialist Cardiology 09/13/22 documented as of this encounter
--- OUTSIDE RECORDS SUMMARY | 2024-04-02 11:14 | XMS_ITS | Encounter Summary ---
Author Organization [facility] Address [address] [place] [address] Care Team Providers Care Wood Machine Carver Name Role Phone Mansi Carias MD Primary Care Provider [phone] Jennie Milian MD Unavailable [phone] Reason for Visit * Reason Comments E-prescribe Rx Request Encounter Details Date Type Department Care Team Description 10/03/2022 Refill Adult Medicine [facility] [address] [place] [address] [phone] Dany Price, LIQUID COMPOUNDER [address] [place], [place] [phone] E-prescribe Rx Request Social History Tobacco Use [...] suspected to have Coronavirus/COVID-19? No / Unsure 09/29/2022 1:20 PM EDT documented as of this encounter Miscellaneous Notes * Telephone Encounter - Mariah Do M.A. - 10/03/2022 3:39 PM EDT Lab Results Component Value Date NA 141 02/03/2021 K 3.9 02/03/2021 CO2 26 02/03/2021 CL 109 02/03/2021 BUN 18 02/03/2021 CREAT 1.31 02/03/2021 GLU 109 02/03/2021 CA 8.8 02/03/2021 GFR 38 02/03/2021 Pending appt with pcp 10/24/22 Last appt 09/05/22 documented in this encounter Plan of Treatment Not on file documented as of this encounter Visit Diagnoses Not on filedocumented in this encounter Care Teams Wood Machine Carver Relationship Specialty Start Date End Date Mansi Carias MD [address] [place] [address] [phone] PCP - General 07/07/06 Jennie Milian MD [address] [place] [address] [phone] Specialist Cardiology 09/13/22 documented as of this encounter
--- OUTSIDE RECORDS SUMMARY | 2024-04-02 11:14 | XMS_ITS | Encounter Summary ---
Author Organization [facility] Address [address] [place] [address] Care Team Providers Care Probe Operator Name Role Phone Mansi Carias MD Primary Care Provider [phone] Jennie Milian MD Unavailable [phone] Reason for Visit * Reason Onset Date Comments refill request 08/14/2018 Encounter Details Date Type Department Care Team Description 08/14/2018 Refill Adult Medicine [address] [phone] Mansi Carias MD [address] [place] [address] [phone] refill request Social History Tobacco Use Types Packs/Day Years [...] encounter Miscellaneous Notes * Telephone Encounter - Cherelle Riggs M.A. - 08/14/2018 10:54 AM EDT Last OV 07/02/18 Next OV 12/03/18 Lab Results Component Value Date ALB 3.8 06/19/2018 SGOT 19 06/19/2018 SGPT 21 06/19/2018 TBILI 0.5 06/19/2018 ALKPHOS 65 06/19/2018 TP 6.4 06/19/2018 * Telephone Encounter - Kia Alatorre - 08/14/2018 10:39 AM EDT Patient would like script to be: [...] / Plan[place] / Product Type: MEDICARE [id number] documented in this encounter Plan of Treatment Not on file documented as of this encounter Visit Diagnoses Not on filedocumented in this encounter Care Teams Probe Operator Relationship Specialty Start Date End Date Mansi Carias MD [address] [place] [address] 0[address]20 PCP - General 07/07/06 Jennie Milian MD [address] [place] [address] 0[address]20 Specialist Cardiology 09/13/22 documented as of this encounter
--- OUTSIDE RECORDS SUMMARY | 2024-04-02 11:14 | XMS_ITS | Encounter Summary ---
Author Organization [facility] Address [address] [place] [address] Phone Care Team Providers Care Head Scorer Name Role Phone Mansi Carias MD Primary Care Provider [phone] Encounter Details Date Type Department Care Team (Late st Contact Info) Description 10/03/2022 Documentation Only [facility] [address] [place] [phone] Anthony Brown MD [address] [place] [address] Social History Tobacco Use Types Packs/Day Years Used Date Smoking Tobacco: Former Smokeless Tobacco: Never Comments Unknown Sex and Gender Information Value Date Recorded Sex Assigned at Not on file Legal Sex Female 4:33 PM EST Gender Identity Not on file Sexual Orientation Not on file documented as of this encounter Plan of Treatment Not on file documented as of this encounter Visit Diagnoses Not on filedocumented in this encounter Care Teams Head Scorer Relationship Specialty Start Date End Date Mansi Carias MD PCP - General 01/08/19 documented as of this encounter
--- OUTSIDE RECORDS SUMMARY | 2024-04-02 11:14 | XMS_ITS | Encounter Summary ---
Author Organization [facility] Address [address] [place] [address] Care Team Providers Care Central Sterilization Technician Name Role Phone Mansi Carias MD Primary Care Provider [phone] Jennie Milian MD Unavailable [phone] Encounter Details Date Type Department Care Team Description 09/22/2013 Near Eastern Archaeology Lecturer Report Medical Records [address] [place] [address] [phone] Daniel June MD Social History Tobacco Use [...] on filedocumented in this encounter Care Teams Central Sterilization Technician Relationship Specialty Start Date End Date Mansi Carias MD [address] [place] [address] [phone] PCP - General 07/07/06 Jennie Milian MD [address] [place] [address] [phone] Specialist Cardiology 09/13/22 documented as of this encounter
--- OUTSIDE RECORDS SUMMARY | 2024-04-02 11:14 | XMS_ITS | Encounter Summary ---
Author Organization [facility] Address [address] [place] [address] Care Team Providers Care Chemical Pumper Name Role Phone Mansi Carias MD Primary Care Provider [phone] Jennie Milian MD Unavailable [phone] Encounter Details Date Type Department Care Team Description 03/12/2013 Business Doc Medical Records [address] [place] [id number] Abstract, Provider Social History Tobacco Use Types [...] on filedocumented in this encounter Care Teams Chemical Pumper Relationship Specialty Start Date End Date Mansi Carias MD [address] [place] [address] [phone] PCP - General 07/07/06 Jennie Milian MD [address] [place] [address] [phone] Specialist Cardiology 09/13/22 documented as of this encounter
--- OUTSIDE RECORDS SUMMARY | 2024-04-02 11:14 | XMS_ITS | Encounter Summary ---
Author Organization [facility] Address [address] [place] [address] Care Team Providers Care Travel Manager Name Role Phone Mansi Carias MD Primary Care Provider [phone] Jennie Milian MD Unavailable [phone] Encounter Details Date Type Department Care Team Description 08/19/2021 Engine Repairer Service Report Medical Records [address] [place] [address] [place] Hills MD Social History Tobacco Use [...] on filedocumented in this encounter Care Teams Travel Manager Relationship Specialty Start Date End Date Mansi Carias MD [address] [place] [address] [phone] PCP - General 07/07/06 Jennie Milian MD [address] [place] [address] 87187 Specialist Cardiology 09/13/22 documented as of this encounter
--- OUTSIDE RECORDS SUMMARY | 2024-04-02 11:14 | XMS_ITS | Encounter Summary ---
Author Organization [facility] Address [address] [place] [address] Care Team Providers Care Choirmaster Name Role Phone Mansi Carias MD Primary Care Provider [phone] Jennie Milian MD Unavailable [phone] Encounter Details Date Type Department Care Team Description 02/08/2017 Ops Analyst Report Medical Records [address] [place] [id number] Anthony Brown MD Social History Tobacco Use [...] on filedocumented in this encounter Care Teams Choirmaster Relationship Specialty Start Date End Date Mansi Carias MD [address] [place] [address] [phone] PCP - General 07/07/06 Jennie Milian MD [address] [place] [address] [phone] Specialist Cardiology 09/13/22 documented as of this encounter
--- OUTSIDE RECORDS SUMMARY | 2024-04-02 11:15 | XMS_ITS | Encounter Summary ---
Author Organization [facility] Address [address] [place] [address] Care Team Providers Care Sports Commentator Name Role Phone Mansi Carias MD Primary Care Provider [phone] Jennie Milian MD Unavailable [phone] Reason for Visit * Reason Onset Date Comments Call From Md Office 08/13/2015 Encounter Details Date Type Department Care Team Description 08/13/2015 Telephone Adult Medicine [address] [phone] Mansi Carias MD [address] [place] [address] [phone] Call From Md Office Social History Tobacco Use Types Packs/Day Years [...] encounter Miscellaneous Notes * Telephone Encounter - Mansi Carias MD - 08/14/2015 3:41 PM EDT I discussed with this ID physician yesterday. I called again today and left a message with secretory * Telephone Encounter - Tatianna Babs - 08/13/2015 2:[address] Bernard would like a call back from Dr Carias at your convenience Thank you documented in this encounter Plan of Treatment Not on file documented as of this encounter Visit Diagnoses Not on filedocumented in this encounter Care Teams Sports Commentator Relationship Specialty Start Date End Date Mansi Carias MD [address] [place] [address] [phone] PCP - General 07/07/06 Jennie Milian MD [address] [place] [address] 36[address] Specialist Cardiology 09/13/22 documented as of this encounter
--- OUTSIDE RECORDS SUMMARY | 2024-04-02 11:15 | XMS_ITS | Encounter Summary ---
Author Organization [facility] Address [address] [place] [address] Care Team Providers Care Landscaping Supervisor Name Role Phone Mansi Carias MD Primary Care Provider [phone] Jennie Milian MD Unavailable [phone] Encounter Details Date Type Department Care Team Description 06/29/2020 Orders Only Radiology - [address] [phone] Mansi Carias MD [address] [place] [address] [phone] Social History Tobacco Use Types Packs/Day Years [...] on filedocumented in this encounter Care Teams Landscaping Supervisor Relationship Specialty Start Date End Date Mansi Carias MD [address] [place] [address] [phone] PCP - General 07/07/06 Jennie Milian MD [address] [place] [address] [phone] Specialist Cardiology 09/13/22 documented as of this encounter
--- OUTSIDE RECORDS SUMMARY | 2024-04-02 11:15 | XMS_ITS | Encounter Summary ---
Author Organization [facility] Address [address] [place] [address] Care Team Providers Care Storekeeper Engineering Name Role Phone Mansi Carias MD Primary Care Provider [phone] Jennie Milian MD Unavailable [phone] Reason for Visit * Reason Onset Date Comments Prior Authorization 04/14/2023 Encounter Details Date Type Department Care Team Description 04/14/2023 Telephone Pulmonology - [place] [address] [facility] [address] [place] [address] Whitney Hong MD [address] [place] [address] Prior Authorization Social History Tobacco [...] Telephone Encounter - Ailyn Holman M.A. - 04/17/2023 10:26 AM EST Auth sent with cover my meds Dx:[id number] Per insurance: Preferred meds are: BREO ELLIPTA, DULERA Can send new rx to pharm if okay Ailyn Holman Prior Auth Dep Ext [id number] * Telephone Encounter - Krissy López - 04/14/2023 4:23 PM EST Prior Authorization for Medication-do not complete and send this encounter unless you have the fax from the pharmacy. Is this a Cover My Meds request: Yes -- Moore Code [id number] Name of Medication SYMBICORT Dose of Medication 160-4.5 MCG/ACT AEROSOL What is the RX # from the faxed refill? How does patient take this med? What Pharmacy did the fax come from: [facility] Pharmacy fax #: [phone] [employer] Information from fax: What Prescription Plan does the patient have? BIN/PCN if applicable: Cardholder ID: Person Code: Relationship Code: Help desk phone: documented in this encounter Plan of Treatment Not on file documented as of this encounter Visit Diagnoses Not on filedocumented in this encounter Care Teams Storekeeper Engineering Relationship Specialty Start Date End Date Mansi Carias MD [address] [place] [address] [phone] PCP - General 07/07/06 Jennie Milian MD [address] [place] [address] [phone] Specialist Cardiology 09/13/22 documented as of this encounter
--- OUTSIDE RECORDS SUMMARY | 2024-04-02 11:15 | XMS_ITS | Encounter Summary ---
Author Organization [facility] Address [address] [place] [address] Care Team Providers Care Title One Reading Teacher Name Role Phone Mansi Carias MD Primary Care Provider [phone] Jennie Milian MD Unavailable [phone] Reason for Visit * Reason Comments E-prescribe Rx Request Encounter Details Date Type Department Care Team Description 12/12/2020 Refill Adult Medicine [address] [phone] Mansi Carias MD [address] [place] [address] [phone] E-prescribe Rx Request Social History Tobacco Use [...] Telephone Encounter - Amelie Godinez M.A. - 12/14/2020 9:46 AM EDT Last office visit 10/08/20 Next office visit 02/09/21 Lab Results Component Value Date ALB 3.8 06/19/2018 SGOT 18 12/09/2019 SGPT 19 12/09/2019 TBILI 0.5 06/19/2018 ALKPHOS 65 06/19/2018 TP 6.4 06/19/2018 * Telephone Encounter - Nery Benson - 12/12/2020 3:55 PM EDT Patient would like script to be: E-PRESCRIBED/FAXED TO PHARMACY WHEN WAS THE PATIENT'S LAST APPOINTMENT IN ADULT MEDICINE? 10/18/2020 WHEN WAS THE LAST TIME THE PATIENT SAW THEIR PCP? Same as above Does patient have an upcoming appointment? Yes 02/09/2021 (THE MEDICATION REQUESTED IS ON THE MED [...] insurance carrier is: [place] / Plan: [place] / Product Type: MEDICARE [id number] documented in this encounter Plan of Treatment Not on file documented as of this encounter Visit Diagnoses Not on filedocumented in this encounter Care Teams Title One Reading Teacher Relationship Specialty Start Date End Date Mansi Carias MD [address] [place] [address] [phone] PCP - General 07/07/06 Jennie Milian MD [address] [place] [phone] Specialist Cardiology 09/13/22 documented as of this encounter
--- OUTSIDE RECORDS SUMMARY | 2024-04-02 11:15 | XMS_ITS | Encounter Summary ---
Author Organization [facility] Address [address] [place] [address] Care Team Providers Care Electric Mule Driver Name Role Phone Mansi Carias MD Primary Care Provider [phone] Jennie Milian MD Unavailable [phone] Encounter Details Date Type Department Care Team Description 11/13/2019 Motor Carrier Inspector Report Medical Records [address] [place] [phone] Anthony Brown MD Social History Tobacco Use [...] on filedocumented in this encounter Care Teams Electric Mule Driver Relationship Specialty Start Date End Date Mansi Carias MD [address] [place] [address] [phone] PCP - General 07/07/06 Jennie Milian MD [address] [place] [address] [phone] Specialist Cardiology 09/13/22 documented as of this encounter
--- OUTSIDE RECORDS SUMMARY | 2024-04-02 11:15 | XMS_ITS | Clinical Summary ---
Author Organization [facility] Address [address] [place] [address] Care Team Providers Care Refractory Manager Name Role Phone Mansi Carias MD Primary Care Provider [phone] Jennie Milian MD Unavailable [phone] Allergies Active Allergy Reactions Severity Noted Date Comments Penicillin G Potassium Rash/Dermatitis 07/11/19 07 Sulfa Drugs Rash/Dermatitis 07/10/2006 Medications Medication Sig Dispensed Refills Start Date End Date Status MULTIVITAMIN OR None Entered 0 Active [place] 3 1000 MG CAPS Take by mouth daily. 0 Active albuterol (PROVENTIL) (2.5 MG/3ML) 0.083% nebulizer solution Take 1 Vial by nebulization every 4 hours as needed for Wheezing. 50 Vial 0 04/15/2014 Active montelukast (SINGULAIR) 10 MG tablet Take 1 Tablet by mouth at bedtime for 360 days. 30 Tablet 11 01/24/2023 Active Fluticasone-Salmet armen 113-14 MCG/ACT AEROSOL POWDER,BREATH ACTIVATED INHALE 2 PUFFS INTO THE LUNGS TWO TIMES DAILY 1 Each 03/15/2023 Active Cholecalciferol (Vitamin D3) 25 MCG (1000 UT) Tab Take by mouth daily. 0 Active Coenzyme Q10 (Co Q 10) 100 MG Cap Take by mouth daily. 0 Active budesonide-formote rol (Symbicort) 160-4.5 MCG/ACT inhalerIndications :Mild persistent asthma, unspecified whether complicated Inhale 2 Puffs into the lungs every 12 hours for 30 days. This medication has inhaler steroid: Rinse mouth with water and expectorate after each dose to prevent oral/esophageal candidiasis or fungal infection. 1 g 11 04/14/2023 Active oxybutynin (DITROPAN-XL) 10 MG 24 hr tablet TAKE ONE TABLET BY MOUTH EVERY DAY 90 Tablet 1 06/09/2023 Active pantoprazole (PROTONIX) 40 MG tablet TAKE ONE TABLET BY MOUTH EVERY DAY 90 Tablet 1 10/16/2023 Active buPROPion (WELLBUTRIN SR) 150 MG 12 hr tablet TAKE ONE TABLET BY MOUTH TWICE A DAY 180 Tablet 1 10/25/2023 Active escitalopram (LEXAPRO) 10 MG tablet TAKE ONE TABLET BY MOUTH EVERY DAY 90 Tablet 0 11/29/2023 Active amlodipine (NORVASC) 5 MG tablet TAKE ONE TABLET BY MOUTH EVERY DAY 90 Tablet 0 11/29/2023 Active atorvastatin (LIPITOR) 20 MG tablet TAKE ONE TABLET BY MOUTH EVERY DAY 90 Tablet 1 12/20/2023 Active Active Problems Problem Noted Date Thoracic aortic aneurysm without rupture 12/02/2022 Overview: - CT angiography of chest, abdomen in the hospital on 08/29/2022 performed for intense back pain showed the thoracic aorta measuring 3.8 cm at the level of the right pulmonary artery, no aortic dissection, major branching vessels arising from the aortic arch were all patent, normal descending thoracic aorta, patent celiac, SMA, renal, and NATASHA arteries, visualized iliac arteries were also patent, no pulmonary emboli were noted, moderate coronary calcifications were noted - See echocardiogram under CAD section Last Assessment & Plan: Minimal dilation of the aortic root and ascending aorta (ascending aorta may actually be upper limit of normal); given advanced age, comorbidities, she is not a candidate for open abdominal aortic aneurysm repair anyways and is nowhere near the dimension at which this would be recommended; as such, I do not think routine surveillance is indicated as it will not exchange architect however we will occasionally repeat echocardiograms to assess her aortic insufficiency as this can be intervened upon in a minimally invasive fashion-this will serve to get a rough estimate of the ascending aorta as well for what its worth Coronary artery disease invo lving tazlina coronary artery of tazlina heart without angina pectoris 12/02/2022 Overview: - Subclinical coronary artery disease noted on CT angiography performed for other reasons as listed under thoracic aortic aneurysm section Last Assessment & Plan: We will increase atorvastatin to 20 mg for more optimal risk reduction; given history of esophageal ulceration, I hesitate to put her on a baby aspirin regimen as bleeding risk may outweigh potential benefit-therefore I am holding off; patient is euvolemic on exam without anginal symptoms Nonrheumatic aortic valve insufficiency 12/02/2022 Overview: - Echocardiogram on 09/29/2022 performed after her ER visit to [facility] for lower back pain radiating to the upper back showed mild, concentric left ventricular hypertrophy with normal LV cavity size and systolic function, normal regional wall motion with an ejection fraction of 55 to 60%, grossly normal right ventricular systolic function, mild left atrial enlargement, moderate aortic insufficiency, no aortic stenosis, trileaflet aortic valve, normal pulmonary artery systolic pressure, dilated sinus of Valsalva at 4.2 cm, ascending aorta measured 3.9 cm Last Assessment & Plan: - Barely heard murmur on exam today, will plan to proceed with surveillance echocardiograms every 2 to 3 years or with new symptoms or change in exam Shoulder pain 11/30/2022 Adnexal cyst 01/26/2022 Overview: Incidental finding on CT of the left hip in the emergency department on 01/24/2022. Dedicated pelvic ultrasound was recommended. Hiatal hernia 08/19/2019 Macular degeneration 12/27/2017 Esophageal ulceration 07/12/2017 Overview: Had EGDx2 after PPI, ulcer resoled, per GI ok to use PPI as needed Essential hypertension 05/02/2016 Last Assessment & Plan: Well-controlled on current regimen of amlodipine 5 mg daily, continue CKD (chronic kidney disease) stage 3, GF R 30-59 ml/min 01/21/2013 Pure hypercholesterolemia 09/18/2006 Occlusion and stenosis of carotid artery 09/18/2006 Overview: R sisde mild to moderate by life screening. Carotid ultrasound 2006: IMPRESSION: No hemodynamically significant stenosis 03/2010 carotid US: IMPRESSION: Unremarkable carotid ultrasound. Generalized anxiety disorder 09/18/2006 Cyst of thyroid 09/18/2006 Asthma 07/10/2006 Overview: Follows with center sales and service associate in [place], Dr. Jignesh reyez DJD 07/10/2006 Overview: IMO update Resolved Problems Problem Noted Date Resolved Date Chest pain 11/30/2022 12/02/2022 Aortic root dilatation 10/17/2022 3 Overview: see ECHO 09/2022 Immunizations Name Administration Dates Next Due COVID-19 (Pfizer) 12/31/2022, 2,01/19/2021,2020,04/15/2020 Influenza (> 6 Months) 11/27/2010,2009,12/12/2007,2006 Influenza Flu (PT Reported) 12/31/2022,0 11/04/2017,12/12/2014,2013,12/08/2011 Influenza vaccine high dose age 65 and over 12/04/2016 Pneumococcal Conjugate PCV-13 12/27/2017 Pneumovax Adult(PT Reported) 12/12/2014,12/08/19 12 Shingrix (Patient reported) 01/10/2020 Zostavax 08/04/2011 Family History Medical History Relation Name Comments DM Aunt Cancer of the Colon Brother 1 at age 42 Cancer of the Lung Brother 2 at age 59 , mets to bone Thyroid Disorder Daughter 1 thyroid ca lymphoma Daughter 2 [place] Father from [place] at age 70 black lung Father Stroke Maternal Grandmother at age 67 CA Basal Cell Mother Nose...by pts description of scar Hypertension Mother CA Breast Negative Hx Relation Name Status Comments Aunt Brother 1 Brother 2 Daughter 1 Daughter 2 Father Maternal Grandmother Mother Social History Tobacco Use Types Packs/Day Years Used Date Smoking Tobacco: Former Cigarettes 2.5 24 Smokeless Tobacco: Never Tobacco Cessation:Counseling Given: Not Answered Comments:quit 1985 Alcohol Use Standard Drinks/Week Comments Yes 0 (1 standard drink = 0.6 oz pur e alcohol) a glass of wine, now and then Sex Assigned at Date Recorded Not on file Job Start Date Occupation Industry Not on file Not on file Not on file Last Filed Vital Signs Vital Sign Reading Time Taken Comments Blood Pressure 108/52 10/13/2023 2:45 PM EDT Pulse 84 10/13/2023 2:45 PM EDT Temperature 36.3 ??C (97.4 ??F) 10/13/2023 2:45 PM ED T Respiratory Rate 20 10/13/2023 2:45 PM EDT Oxygen Saturation 96% 10/13/2023 2:45 PM EDT Inhaled Oxygen Concentration - - Weight 64.9 kg (143 lb) 10/13/2023 2:45 PM EDT Height 157.5 cm (5' 2 ) 10/13/2023 2:45 PM EDT Body Mass Index 26.16 10/13/2023 2:45 PM EDT Plan of Treatment Health Maintenance Due Date Last Done Comments BONE DENSITY SCREENING 08/14/2014 3, 03/26/2010, 08/27/2007 PNEUMOCOCCAL VACCINE (2 - PP SV23 or PCV20) 12/27/2018 12/27/2017, 12/12/2014 SHINGLES VACCINE (3 of 3) 03/06/2020 01/10/2020, MAMMOGRAM 09/02/2022 09/02/2021, 08/05, 04/24/2018, Additional history exists FALL RISK ASSESSMENT 10/25/2023 10/24/2022, 03/14/2022, 02/09/2021, Additional history exists Covid-19 Vaccine (2022-2 4 season) 2023 12/31/2022, 06/21/2021, 01/19/2021, Additional history exists INFLUENZA (#1) 2023 12/31/2022, 08/2019, 12/27/2018, Additional history exists BMI CHECK/ADVISE 03/06/2024 10/05/2023, , 10/24/2022, Additional history exists DEPRESSION SCREEN 10/04/2024 10/05/2023, , 11/06/2020, Additional history exists DTAP/TDAP/TD (2 - Td or Tdap) 06/11/2027 06/10/2017 CHOLESTEROL SCREENING 01/18/2028 01/17/2023 , 02/03/2021, 12/09/2019, Additional history exists Insurance Payer Benefit Plan / Group Subscriber ID Effective Dates Phone Address Type [place] [id number] 08/05/1999-Pre sent [phone] [address] [place] [address] MEDICARE [id number] [facility] MEDICARE SUPP $0 [place] [id number] 03/06/2016-Pre sent [facility] [address] [place] [address] MEDICARE SUPPLEMENTAL MEDICARE-[facility] MCR F 1+/50% [id number] 08/05/1999-Pre sent [address] [place] [address] MEDICARE [id number] [facility] MEDICARE SUPP $0 [place] [id number] 03/06/2016-Pre sent [facility] CLAIM [facility] [address] [place] [phone] [place]AL [place] [id number] 08/04/2022-Pre sent [address] [place] [address] MEDICARE [id number] [facility] MEDICARE SUPP $0 [place] [id number] 08/04/2022-Pre sent [facility] CLAIM [facility] [address] [place] [phone] MEDICARE SUPPLEMENTAL Care Teams Refractory Manager Relationship Specialty Start Date End Date Mansi Carias MD [address] [place] [phone] PCP - General 07/07/06 Jennie Milian MD [address] [place] [address] [phone] Specialist Cardiology 09/13/22
--- OUTSIDE RECORDS SUMMARY | 2024-04-02 11:15 | XMS_ITS | Encounter Summary ---
Author Organization [facility] Address [address] [place] [address] Care Team Providers Care Salesman/Owner Name Role Phone Mansi Carias MD Primary Care Provider Jennie Milian MD Unavailable [phone] Reason for Visit * Reason Comments E-prescribe Rx Request Encounter Details Date Type Department Care Team Description 12/19/2020 Refill Adult Medicine [address] [phone] Mansi Carias MD [address] [place] [address] [phone] E-prescribe Rx Request Social History Tobacco Use [...] Telephone Encounter - Amelie Godinez M.A. - 12/21/2020 3:29 PM EDT Last office visit 04/17/20 Next office visit 02/09/21 Lexapro filled on 12/14/20 for 90 days with 1 refill Lab Results Component Value Date CHOL 12/09/2019 LDL 114 12/09/2019 HDL 67 12/09/2019 TRIG 110 12/09/2019 SGOT 18 12/09/2019 SGPT 19 12/09/2019 * Telephone Encounter - Lauro Washburn - 12/21/2020 3:27 PM EDT Patient would like script to be: E-PRESCRIBED/FAXED TO PHARMACY WHEN WAS THE PATIENT'S LAST APPOINTMENT IN ADULT MEDICINE? 10/08/2020 WHEN WAS THE LAST TIME THE PATIENT [...] N/A Patients current insurance carrier is: [place] / [place] / Product Type: MEDICARE [id number] documented in this encounter Plan of Treatment Not on file documented as of this encounter Visit Diagnoses Not on filedocumented in this encounter Care Teams Salesman/Owner Relationship Specialty Start Date End Date Mansi Carias MD [address] [place] [phone] PCP - General 07/07/06 Jennie Milian MD [address] [place] [phone] Specialist Cardiology 09/13/22 documented as of this encounter
--- OUTSIDE RECORDS SUMMARY | 2024-04-02 11:15 | XMS_ITS | Encounter Summary ---
Author Organization [facility] Address [address] [place] [address] Care Team Providers Care Apple Press Operator Name Role Phone Mansi Carias MD Primary Care Provider [phone] Jennie Milian MD Unavailable [phone] Reason for Visit * Reason Onset Date Comments Provider Call Back 01/01/2015 Encounter Details Date Type Department Care Team Description 01/01/2015 Telephone Nephrology - [place] [address] [place] [address] Anthony Brown MD Provider Call Back Social History Tobacco Use Types Packs/Day Years [...] encounter Miscellaneous Notes * Telephone Encounter - Liana Johnson - 01/01/2015 11:45 AM EDT Patient called her PCP advised to probably call you to see if you want to give her bp meds. Please call at: [phone]. documented in this encounter Plan of Treatment Not on file documented as of this encounter Visit Diagnoses Not on filedocumented in this encounter Care Teams Apple Press Operator Relationship Specialty Start Date End Date Mansi Carias MD [address] [place] [address] [phone] PCP - General 07/07/06 Jennie Milian MD [address] [place] [address] [phone] Specialist Cardiology 09/13/22 documented as of this encounter
--- OUTSIDE RECORDS SUMMARY | 2024-04-02 11:15 | XMS_ITS | Encounter Summary ---
Author Organization [facility] Address [address] [place] [address] Care Team Providers Care Education Supervisor Name Role Phone Mansi Carias MD Primary Care Provider [phone] Jennie Milian MD Unavailable [phone] Encounter Details Date Type Department Care Team Description 08/13/2015 Hospital Medical Records [address] [place] [address] Fausto Armando MD Social History Tobacco Use [...] on filedocumented in this encounter Care Teams Education Supervisor Relationship Specialty Start Date End Date Mansi Carias MD [address] [place] [address] [phone] PCP - General 07/07/06 Jennie Milian MD [address] [place] [address] [phone] Specialist Cardiology 09/13/22 documented as of this encounter
--- OUTSIDE RECORDS SUMMARY | 2024-04-02 11:15 | XMS_ITS | Encounter Summary ---
Author Organization [facility] Address [address] [place] [address] Care Team Providers Care Destination Imagination Coordinator Name Role Phone Mansi Carias MD Primary Care Provider [phone] Jennie Milian MD Unavailable [phone] Reason for Visit * Reason Onset Date Comments Prior Authorization 09/08/2023 Encounter Details Date Type Department Care Team Description 09/08/2023 Telephone Pulmonology - [place] [address] [facility] [address] [place] [address] Whitney Hong MD [address] [place] [address] Prior Authorization Social History Tobacco [...] encounter Miscellaneous Notes * Telephone Encounter - Clarisa Vyas M.A. - 11/30/2023 9:22 AM EDT . Prior authorization is not required at this time. If your pharmacy has questions regarding the processing of your prescription, please have them call the [facility] pharmacy help desk at . * Telephone Encounter - Clarisa Vyas M.A. - 09/12/2023 10:35 AM EDT Prior authorization completed today on [facility] for the air duo. Dx code J45.909 asthma Continuation of therapy * Telephone Encounter - Betsy Gallagher - 09/08/2023 1:36 PM EDT Prior Authorization for Medication-do not complete and send this encounter unless you have the fax from the pharmacy. Is this a Cover My Meds request: Yes -- Moore Code [id number] Name of Medication FLUTICASONE-SALMETEROL Dose of Medication 113-14MCG/ACT What is the RX # from the faxed refill? How does patient take this med? Aerosol powder What Pharmacy did the fax come from: [facility] fax #: [phone] Third Constitution Party Information from fax: What Prescription Plan does the patient have? BIN/PCN if applicable: Cardholder ID: Person Code: Relationship Code: Help desk phone: [phone] documented in this encounter Plan of Treatment Not on file documented as of this encounter Visit Diagnoses Not on filedocumented in this encounter Care Teams Destination Imagination Coordinator Relationship Specialty Start Date End Date Masni Carias MD [address] [place] [address] [phone] PCP - General 07/07/06 Jennie Milian MD [address] [place] [address] [phone] Specialist Cardiology 09/13/22 documented as of this encounter
--- OUTSIDE RECORDS SUMMARY | 2024-04-02 11:15 | XMS_ITS | Encounter Summary ---
Author Organization [facility] Address [address] [place] [address] Care Team Providers Care Safety And Skill Based Pay Manager Name Role Phone Mansi Carias MD Primary Care Provider [phone] Jennie Milian MD Unavailable [phone] Encounter Details Date Type Department Care Team Description 08/16/2012 Business Doc Medical Records [address] [place] [address] Abstract, Provider Social History Tobacco Use Types [...] on filedocumented in this encounter Care Teams Safety And Skill Based Pay Manager Relationship Specialty Start Date End Date Mansi Carias MD [address] [place] [address] [id number] PCP - General 07/07/06 Jennie Milian MD [address] [place] [address] [phone] Specialist Cardiology 09/13/22 documented as of this encounter
--- OUTSIDE RECORDS SUMMARY | 2024-04-02 11:15 | XMS_ITS | Encounter Summary ---
Author Organization [facility] Address [address] [place] [address] Care Team Providers Care Waste Management Engineer Name Role Phone Mansi Carias MD Primary Care Provider Jennie Milian MD Unavailable [phone] Reason for Visit * Reason Comments E-prescribe Rx Request Encounter Details Date Type Department Care Team Description 10/16/2023 Refill Adult Medicine [facility] [address] [place] [address] [phone] Bruno Townsend, PAJennaC [address] [place] [id number] E-prescribe Rx Request Social History Tobacco Use [...] encounter Miscellaneous Notes * Telephone Encounter - Cassy Richardson - 10/16/2023 4:04 PM EDT Pending office visit 04/10/2024 Last office visit 10/05/2023 Lab Results Component Value Date NA 141 02/03/2021 K 3.9 02/03/2021 CO2 26 02/03/2021 CL 109 02/03/2021 BUN 18 02/03/2021 CREAT 1.31 02/03/2021 GLU 109 02/03/2021 CA 8.8 02/03/2021 GFR 38 02/03/2021 documented in this encounter Plan of Treatment Not on file documented as of this encounter Visit Diagnoses Not on filedocumented in this encounter Care Teams Waste Management Engineer Relationship Specialty Start Date End Date Mansi Carias MD [address] [place] [address] [phone] PCP - General 07/07/06 Jennie Milian MD [address] [place] [address] [id number] Specialist Cardiology 09/13/22 documented as of this encounter
--- OUTSIDE RECORDS SUMMARY | 2024-04-02 11:15 | XMS_ITS | Encounter Summary ---
Author Organization [facility] Address [address] [place] [address] Care Team Providers Care Youth Career Specialist Name Role Phone Mansi Carias MD Primary Care Provider [phone] Jennie Milian MD Unavailable [phone] Encounter Details Date Type Department Care Team Description 04/18/2023 Milk Vendor Report Medical Records [address] [place] [address] Luz Maria Bagley MD Social History Tobacco Use Types Packs/Day [...] on filedocumented in this encounter Care Teams Youth Career Specialist Relationship Specialty Start Date End Date Mansi Carias MD [address] [place] [address] [phone] PCP - General 07/07/06 Jennie Milian MD [address] [place] [address] [phone] Specialist Cardiology 09/13/22 documented as of this encounter
--- OUTSIDE RECORDS SUMMARY | 2024-04-02 11:15 | XMS_ITS | Encounter Summary ---
Author Organization [facility] Address [address] [place] [address] Care Team Providers Care Chemist Physical Name Role Phone Mansi Carias MD Primary Care Provider [phone] Jennie Milian MD Unavailable [phone] Encounter Details Date Type Department Care Team Description 08/12/2015 Hospital Medical Records [address] [place] [id number] Greg Hunter NP Social History Tobacco Use Types Packs/Day Years [...] on filedocumented in this encounter Care Teams Chemist Physical Relationship Specialty Start Date End Date Mansi Carias MD [address] [place] [address] [phone] PCP - General 07/07/06 Jennie Milian MD [address] [place] [address] [phone] Specialist Cardiology 09/13/22 documented as of this encounter
--- OUTSIDE RECORDS SUMMARY | 2024-04-02 11:15 | XMS_ITS | Data Portability ---
Author Organization [facility] [address] Address [address] [place] [address] Assessment No assessment recorded. Plan of Treatment Reminders Order Date Submit Date Provider Last Modified By Organization Details Last Modified Time Details Appointments None recorded. Lab None recorded. Referral None recorded. Procedures None recorded. Surgeries None recorded. Imaging None recorded. Medication Orders doxycycline hyclate 100 mg capsule 2021 022 DONNELLY [id number], [address] [facility], [place], [address], 11:49:53 Patient TargetsNo targets recorded. Patient Instructions Encounter Date Encounter Id Patient Instructions Last Modified By Organization Details Last Modified Time 02/08/2022 [id number] bruises: care instructions Not available 02/08/2022 11:49:51 cellulitis: care instructions [email or web address] Not available 02/08/2022 11:49:51 Based on your presentation and exam today, I am diagnosing you with finger cellulitis/abscess. My differential for this presentation would also be a pyoderma granuloma. This is a non-cancerous lesion. I am going to prescribe you and antibiotic to cover this infection. Please be sure to complete the full course of this antibiotic to prevent antibiotic resistance. I suggest with any antibiotic that you take Florastor or another probiotic. This help re-colonize you body with the good bacteria. It might take 3-4 days for the antibiotic to start working - so don't panic if your infection gradually worsens over the next 48 hours before it gets better. The following are my recommendations to help you feel better and aid in resolving this infection: 1. No creams or lotions on the affected area - so no Antibiotic ointment. 2. Warm Epsen Salt Soaks - 2 or 3 x daily. This will help move the infection to the surface of the skin. 3. Take Ibuprofen or Tylenol if you do not have any allergies to these medications. If you take a blood thinner you should not take NSAIDS like Ibuprofen. These medication will help with the inflammation in your respiratory tract which should help the cough. 4. Do no squeeze or pick at the area. This can worsen the infection. The following are warning signs to look out for that would suggest the infection is worsening. This would mean you should be seen again: 1. Fever > 100.5 2. Redness is spreading to double the size in 24 hours 3. Increased swelling and pain. 4. Inability to move a joint 5. Swollen lymph nodes that are tender Thank you for using [facility] today, please don't hesitate to call or reach out to us if you have any questions or concerns. Regarding the Bruising - picker feeder some Arnica Cream at the pharmacy this is over the counter. This will help the bruising resolve - you can use this any time you get a bruise somewhere. [email or web address] Not available 02/08/2022 11:49:10 Reason for Referral None Reported. Problems Name Problem SNOMED Code Status Onset Date Resolution Date Notes Provider Name and Address Organization Details Recorded Time Hypertensive disorder 49242504 Active 2021 STELLA RETANA null, PA - [facility] 11:23:15 Depressive disorder 98351940 Active 2021 STELLA RETANA null, PA - [facility] 11:23:30 Asthma 355322906 Active 2021 STELLA RETANA null, PA - [facility] 11:23:47 Urinary incontinence 288057166 Active 2021 STELLA RETANA null, PA - [facility] 11:24:04 Problem Notes None recorded. Procedures Surgical History Date Name Laterality Status Provider Name and Address Organization Details Recorded Time procedure on knee completed STELLA RETANA PA - [facility] 02/08/2022 11:26:02 cholecystectomy completed STELLA RETANA P A - [facility] 02/08/2022 11:26:21 oophorectomy completed STELLA GOLDEY PA - [facility] 02/08/2022 11:26:37 Imaging Results None recorded. Procedure Notes None recorded. Medical Equipment None Reported. Allergies Allergen ID Allergen Name Allergen Category Reaction Reaction Severity Criticality Documentation Date Start Date Code Code System Note Provider Name and Address Organization Details Recorded Time 00121 Substance with sulfonami de structure and antibacte rial mechanism of action (substanc e) medicatio n itching Not available Not available 02/08/2022 34802 8003 SNOMED STELLA RETANA null, PA - [facility] 11:21:24 84324 Product containin g penicilli n and antibioti c (product) medicatio n itching Not available Not available 02/08/2022 45042 05 SNOMED STELLA RETANA null, PA - [facility] 11:21:35 Medications Name Sig Start Date Stop Date Status Note LastModified by Organization Details LastModified Time p-4 pain formulation w/o bupivacaine salt stable APPLY 1-3 GRAMS TO THE AFFECTED AREA 3-4 TIMES DAILY (RIGHT KNEE) APPLY FIRST, RUB IN WELL active Not Available Not Available No t Available bupropion HCl SR 150 mg tablet,12 hr sustained-r elease TAKE 1 TABLET BY MOUTH TWICE DAILY active Not Available Not Available No t Available doxycycline hyclate 100 mg capsule TAKE ONE CAPSULE BY MOUTH TWICE A DAY FOR 7 DAYS active Not Available Not Available No t Available oxybutynin chloride ER 10 mg tablet,exte nded release 24 hr TAKE ONE TABLET BY MOUTH EVERY DAY active Not Available Not Available No t Available pravastatin 40 mg tablet TAKE 1 TABLET BY MOUTH DAILY 02/08 completed Not Available Not Available Not Available hydrocodone 5 mg-acetamin ophen 325 mg tablet TAKE 1 TABLET BY MOUTH EVERY 6 HOURS FOR PAIN active Not Available Not Available No t Available amlodipine 5 mg tablet TAKE 1 TABLET BY MOUTH DAILY active Not Available Not Available No t Available tramadol 50 mg tablet TAKE 1 TABLET BY MOUTH FOUR TIMES DAILY NEEDED 02/08 completed Not Available Not Available Not Available pantoprazol e 40 mg tablet,kay yed release TAKE ONE TABLET BY MOUTH EVERY DAY active Not Available Not Available No t Available dexamethaso ne 4 mg tablet TAKE ONE TABLET BY MOUTH TWICE A DAY 02/08 completed Not Available Not Available Not Available montelukast 10 mg tablet TAKE 1 TABLET BY MOUTH EVERY DAY active Not Available Not Available No t Available escitalopra m 10 mg tablet TAKE ONE TABLET BY MOUTH EVERY DAY active Not Available Not Available No t Available coenzyme Q10 active Not Available Not Available Not Available Vitamin D3 active Not Available Not Av ailable Not Available Symbicort 160 mcg-4.5 mcg/actuati on HFA aerosol inhaler INHALE 2 PUFFS INTO THE LUNGS TWO TIMES DAILY active Not Available Not Available No t Available lidocaine 5 % topical ointment APPLY 1-3G (INCHES) TO THE AFFECTED AREA 3-4 TIMES A DAY. (RIGHT KNEE) APPLY SECOND active Not Available Not Available No t Available Vitals Date Recorded Body height Provider Name an d Address Organization Details Last Updated DateTime 02/08/2022 162.56 cm STELLARYANNE RETANA PA - [facility] 04/11/2021 11:20:30 Date Recorded Body mass index (BMI) Provider Name and Address Organization Details Last Updated DateTime 02/08/2022 27.8 kg/m2 STELLA RETANA PA - [facility] 04/11/2021 11:20:41 Date Recorded Body weight Provider Name an d Address Organization Details Last Updated DateTime 02/08/2022 15652.96 g STELLA RETANA PA - [facility] 04/11/2021 11:20:42 Date Recorded Pain severity - 0-10 verbal numeric rating [Score] - Reported Provider Name and Address Organization Details Last Updated DateTime 02/08/2022 5 STELLA RETANA PA - [facility] 04/11/2021 11:20:45 Date Recorded Respiratory rate Provider Name a nd Address Organization Details Last Updated DateTime 02/08/2022 18 /min STELLA GOLDEY PA - [facility] 04/11/2021 11:28:02 Date Recorded Body temperature Provider Name a nd Address Organization Details Last Updated DateTime 02/08/2022 97.9 [degF] STELLA GOLDEY PA - [facility] 02/08/2022 11:28:37 Date Recorded Oxygen saturation Oxygen saturation in Arterial blood by Pulse oximetry Provider Name and Address Organization Details Last Updated DateTime 02/08/2022 95 % 95 % STELLA RETANA PA - [facility] 02/08/2022 11:28:40 Date Recorded Heart rate Provider Name an d Address Organization Details Last Updated DateTime 02/08/2022 96 /min STELLA RETANA PA - [facility] 04/11/2021 11:28:45 Date Recorded Systolic blood pressure Diastolic blood pressure Provider Name and Address Organization Details Last Updated DateTime 02/08/2022 127 mm[Hg] 73 mm[Hg] STELLA RETANA PA - [facility] 02/08/2022 11:27:51 Social History Question Answer Notes LastModified by Organizat ion Details LastModified Time Tobacco Smoking Status Former Smoker STELLA RETANA barbra PA - [facility] 02/08/2022 11:25:19 What Is Your Level Of Alcohol Consumption? Occasional [email or web address] Information not available 02/08/2022 Which Illicit Or Recreational Drugs Have You Used? Marijuana [email or web address] Information not available 02/08/2022 When Did You Quit Smoking? 16+yearssincel astcigarette [email or web address] Information not available 02/08/2022 Do You Use Any Illicit Or Recreational Drugs? Yes [email or web address] Information not available 02/08/2022 Have You Recently Traveled Abroad? No [email or web address] Information not available 02/08/2022 Do You Or Have You Ever Used Any Other Forms Of Tobacco Or Nicotine? No [email or web address] Information not available 02/08/2022 Sex: Unknown Functional Status None recorded. Mental Status None recorded. Family History Relationship Description Onset Age of this Age Resolved Age Notes LastModified by Organization Details LastModified Time Father No current problems or disability [email or web address] Not available 02/08 11:24:29 Mother No current problems or disability [email or web address] Not available 02/08 11:24:29 Medical History No medical history recorded. Gynecological HistoryNo gynecological history recorded. Obstetrics History GPAL:G 0 P 0 0 0 0 Past Encounters Encounter ID Performer Location Encounter Start Date Encounter Closed Date Diagnosis/Indication Diagnosis SNOMED-CT Code Diagnosis ICD10 Code Diagnosis Note [id number] [address] [address] 04/30/2019 15:15:04 04/30/2019 15:44:00 [id number] [address] [address] [address] 03/04/2016 12:57:45 03/04/2016 14:49:31 [id number] [place] [address] 10/13/2020 15:52:15 10/13/2020 17:24:11 [id number] [address] [place] [address] 11/15/2015 12:34:07 11/15/2015 13:24:00 [id number] [address] [place] [address] 12/10/2015 10:28:01 12/10/2015 13:31:47 [id number] [facility] [address] [place] [address] 02/08/2022 10:50:01 02/08/2022 11:53:23 Cellulitis and abscess of finger 473542810 L02.519 Differenti al: Pyoderma Granuloma Contusion of left lower leg 9247076210 5365872 S80.12XA Health Concerns Section Related Observation LastModified by Organization Detai ls LastModified Time None Recorded Concern Status LastModified by Organization Details LastModified Time None Recorded Advance Directives Directive None Recorded Payers Encounter Date Sequence Insurance Name Policy Number Policy Leary Covered Member ID Leary Member ID Guarantor Name 12/10/2015 1 [place] [employer] [employer] Franny Bright [id number] Franny Zaragoza Bright 03/04/2016 1 [place] Franny Bright [id number] Franny Zaragoza Bright 04/30/2019 1 [place] Franny Bright [id number] Franny Zaragoza Bright 04/30/2019 2 [employer] HE[employer] OPTIONS (MEDICARE SUPPLEMENT) Franny Bright [id number] Franny Bright 10/13/2020 1 [place] Franny Bright [id number] Franny Bright 10/13/2020 2 [employer] OPTIONS (MEDICARE SUPPLEMENT) Franny Bright [id number] Franny Zaragoza Bright 02/08/2022 1 [place] Franny Bright [id number] Franny Bright 02/08/2022 2 [employer] OPTIONS (MEDICARE SUPPLEMENT) Franny Bright [id number] Franny Bright Notes Date Note Type Note Provider Name and Address Organization Details Recorded Time 2 text/html Rash / Skin LesionReported bypatient.source of patient informationInformation obtained from patient; Patient arrived at Urgent Care ambulatory Location:hands; legs Quality:spreading Severity:mild Duration:6 weeks; months Associated Symptoms:no fever; no fatigueNotes:The patient fell and bruised about 6 weeks ago. Was having a lot of pain in the thigh area and was seen in the ER. No fracture and given steroids. Here today because they noticed bruising starting in the calf but she is not having any pain. Her said there was never bruising there to begin with. She has not fallen resently. The patient also is concerned about a lesion on the right thumb. She reports that it looked like it was filled with pus. Was doing epsen salt soaks, and then she opened it with a needle. Bloody pus came out per the patient. She reports no feeling of FB, but the area is quite large now that she pulled skin off. ROGE FRANK [address] [place], [address], [place] - [facility] 02/08/2022 12:05:58 OBGyn Episode No OBEpisode recorded.
--- OUTSIDE RECORDS SUMMARY | 2024-04-02 11:15 | XMS_ITS | Encounter Summary ---
Author Organization [facility] Address [address] [place] [address] Care Team Providers Care Benefits Consulting Analyst Name Role Phone Mansi Carias MD Primary Care Provider [phone] Jennie Milian MD Unavailable [phone] Encounter Details Date Type Department Care Team Description 08/24/2015 SCAN Medical Records [address] [place] [address] Abstract, Provider Social History Tobacco Use Types [...] on filedocumented in this encounter Care Teams Benefits Consulting Analyst Relationship Specialty Start Date End Date Mansi Carias MD [address] [place] [address] [phone] PCP - General 07/07/06 Jennie Milian MD [address] [place] [address] [phone] Specialist Cardiology 09/13/22 documented as of this encounter
--- OUTSIDE RECORDS SUMMARY | 2024-04-02 11:15 | XMS_ITS | Patient Health Record ---
Author Organization [facility] Address [address] [place] [address] Care Team Providers Care Director Of Medical Staff Services Name Role Phone Mansi Carias Primary Care Provider Unavailabl e Allergies Allergen (clinical drug ingredient) Drug/Non Drug Allergy documented on EMR Reaction Allergy Type Onset Date Status penicillin G Penicillin G Potassium Unknown Drug Allergy Active Substance with sulfonamide structure and antibacterial mechanism of action (substance) Sulfa Antibiotics Unknown Drug Allergy Active Reason For Referral No Information Medications Medication SIG (Take, Route, Frequency, Duration) Notes Start Date End Date Status Multivitamins Active oxyBUTYnin Chloride ER 10 MG 1 tablet Orally Once a day Active Escitalopram Oxalate 10 MG 1 tablet Oral ly Once a day Active amLODIPine Besylate 5 MG 1 tablet Orally Once a day Active buPROPion HCl ER (SR) 150 MG 1 tablet in the morning Orally twice a day Active [facility] 3 1000 MG 1 capsule Orally Onc e a day Not-Taking Albuterol Sulfate (2.5 MG/3ML) 0.083% 3 mL as needed Inhalation every 3 hrs Active Budesonide-Formoterol Fumarate 160-4.5 MCG/ACT 2 puffs Inhalation Twice a day Active Pantoprazole Sodium 40 MG 1 tablet Orall y Once a day Active Problems Problem Type SNOMED Code ICD Code Onset Dates Problem Status W/U Status Risk Notes Problem [id number] Acquired hallux valgus of left foot (M20.12) Active confirmed Plan Of Treatment Pending Test Test Name Order Date X ray : Foot, left 3v 11/12/2021 Insurance Providers Payer Name Payer Address Payer Phone Subscriber Number Group Number Insured Name Patient Relationship to Insured Coverage Start Date Coverage End Date Medicare of [place] [address] [place] [phone] [id number] Franny Bright Self - patient is the insured AARP Secondary to Medicare [address] [place] [phone] [id number] Franny Bright Self - patient is the insured Medical (General) History Medical History History ICD Code asthma knee DJD hypercholesterolemia occlusion and stenosis of carotid artery anxiety cyst of thyroid CKD (chronic kidney disease) stage 3 hypertension esophageal ulceration macular degeneration hiatal hernia acquired hallux valgus of left foot Surgical History Surgery Date(Month/Year) left knee replacement ([place]) right knee stem cell treatment left oophorectomy left breast lump removed benign findings cholecystectomy left bunionectomy 1967 Hospitalization History Reason Date(Month/Year) cholecystectomy left knee replacement 1967 (girl) 1970 kidn ey disease vaginal delivery (girl) 1959 vaginal delivery (boy) 1955
--- OUTSIDE RECORDS SUMMARY | 2024-04-02 11:15 | XMS_ITS | Encounter Summary ---
Author Organization [facility] Address [address] [place] [address] Care Team Providers Care Land Development Manager Name Role Phone Mansi Carias MD Primary Care Provider [phone] Jennie Milian MD Unavailable [phone] Reason for Visit * Reason Onset Date Comments Faxed Refill 06/22/2020 Encounter Details Date Type Department Care Team Description 06/22/2020 Refill Adult Medicine [address] [phone] Mansi Carias MD [address] [place] [address] [phone] Faxed Refill Social History Tobacco Use Types Packs/Day Years [...] Telephone Encounter - Mariah Do M.A. - 06/23/2020 9:51 AM EDT Lab Results Component Value Date CHOL 203 12/09/2019 LDL 114 12/09/2019 HDL 67 12/09/2019 TRIG 110 12/09/2019 SGOT 18 12/09/2019 SGPT 19 12/09/2019 Last appt 04/17/20 * Telephone Encounter - Thelma Rod - 06/22/2020 10:38 AM EDT Patient would like script to be: E-PRESCRIBED/FAXED TO PHARMACY WHEN WAS THE PATIENT'S LAST APPOINTMENT IN ADULT MEDICINE? 04/17/20 WHEN WAS THE LAST TIME THE PATIENT SAW THEIR PCP? Same as above Does patient have an upcoming appointment? No-patient refused appointment, will call back to book appointment (THE MEDICATION REQUESTED IS ON THE MED [...] / Plan: [place] / Product Type: MEDICARE [id number] documented in this encounter Plan of Treatment Not on file documented as of this encounter Visit Diagnoses Not on filedocumented in this encounter Care Teams Land Development Manager Relationship Specialty Start Date End Date Mansi Carias MD [address] [place] [address] [phone] PCP - General 07/07/06 Jennie Milian MD [address] [place] [address] [phone] Specialist Cardiology 09/13/22 documented as of this encounter
--- OUTSIDE RECORDS SUMMARY | 2024-04-02 11:15 | XMS_ITS | Clinical Summary ---
Author Organization [facility] it Address [address] [place] [address] Care Team Providers Care Regional Loss Prevention Manager Name Role Phone Mansi Carias MD Primary Care Provider [phone] Allergies Active Allergy Reactions Criticality Noted Date Comments Penicillin G Potassium 07/10/2006 Other Reaction(s): Rash/Dermatitis Sulfa (Sulfonamide Antibiotics) 07/10/2006 Other Reaction(s): Rash/Dermatitis Medications Medication Sig Dispensed Refills Start Date End Date Status atorvastatin (LIPITOR) 20 mg tablet Take 1 tablet (20 mg total) by mouth 1 (one) time each day. 12/20/2023 Active buPROPion SR (WELLBUTRIN SR) 150 mg 12 hr tablet Take 1 tablet (150 mg total) by mouth 2 (two) times a day. 10/25/2023 Active pantoprazole (PROTONIX) 40 mg EC tablet Take 1 tablet (40 mg total) by mouth 1 (one) time each day. 10/16/2023 Active oxyBUTYnin XL (DITROPAN-XL) 10 mg 24 hr tablet Take 1 tablet (10 mg total) by mouth 1 (one) time each day. 06/09/2023 Active cholecalciferol (VITAMIN D-3) 25 mcg (1,000 unit) tablet Take by mouth daily. Active coenzyme Q-10 100 mg capsule Take by mouth daily. Active fluticasone propion-salmeter oL (AIRDUO RESPICLICK) 113-14 mcg/actuation aerosol powdr breath activated inhaler INHALE 2 PUFFS INTO THE LUNGS TWO TIMES DAILY 03/15/2023 Active albuterol 2.5 mg /3 mL (0.083 %) nebulizer solution Take 1 Vial by nebulization every 4 hours as needed for Wheezing. 04/15/2014 Active omega-3 acid ethyl esters (LOVAZA) 1 gram capsule Take by mouth daily. Active MULTIVITAMIN ORAL None Entered Active montelukast (SINGULAIR) 10 mg tablet TAKE ONE TABLET BY MOUTH EVERY DAY AT BEDTIME 30 tablet 11 02/19/2024 Active escitalopram (LEXAPRO) 10 mg tablet TAKE ONE TABLET BY MOUTH EVERY DAY 90 tablet 03/28/2024 Active amLODIPine (NORVASC) 5 mg tablet TAKE ONE TABLET BY MOUTH EVERY DAY 90 tablet 03/28/2024 Active escitalopram (LEXAPRO) 10 mg tablet Take 1 tablet (10 mg total) by mouth 1 (one) time each day. 11/29/2023 5 Discontinued amLODIPine (NORVASC) 5 mg tablet Take 1 tablet (5 mg total) by mouth 1 (one) time each day. 11/29/2023 5 Discontinued Active Problems Problem Noted Date Diagnosed Date Coronary artery disease invo lving chick[place]ominy indian tribe coronary artery of chick[place]om[place] indian tribe heart without angina pectoris 12/02/2022 Overview (02/05/2024): - Subclinical coronary artery disease noted on [...] without anginal symptoms Nonrheumatic aortic valve insufficiency 12/03/19 Overview (02/05/2024): - Echocardiogram on 09/29/2022 performed after her ER visit to [facility] for lower back pain radiating to [...] with new symptoms or change in exam Thoracic aortic aneurysm without rupture 023 Overview (02/05/2024): - CT angiography of chest, abdomen in [...] surveillance is indicated as it will not loom changeover operator however we will occasionally repeat echocardiograms to assess her aortic insufficiency as this can be intervened upon in a minimally invasive fashion-this will serve to get a rough estimate of the ascending aorta as well for what its worth Shoulder pain 11/30/2022 Adnexal cyst 01/26/2022 Overview (02/05/2024): Incidental finding on CT of the left hip in the emergency department on 01/24/2022. Dedicated pelvic ultrasound was recommended. Hiatal hernia 08/19/2019 Macular degeneration 12/27/2017 Esophageal ulceration 07/12/2017 Overview (02/05/2024): Had EGDx2 after PPI, ulcer resoled, per GI ok to use PPI as needed Essential hypertension 05/02/2016 Overview (02/05/2024): Last Assessment & Plan: Well-controlled on current regimen of amlodipine 5 mg daily, continue CKD (chronic kidney disease) stage 3, GFR 30-59 ml/min 01/21/2013 Cyst of thyroid 09/18/2006 Generalized anxiety disorder 09/18/2006 Occlusion and stenosis of right carotid artery 0 09/18/2006 Overview (02/05/2024): R sisde mild to moderate by life screening. Carotid ultrasound 2006: IMPRESSION: No hemodynamically significant stenosis 03/2010 carotid US: IMPRESSION: Unremarkable carotid ultrasound. Pure hypercholesterolemia 09/18/2006 Asthma 07/10/2006 Overview (02/05/2024): Follows with [facility] in [place], Dr. Egan Osteoarthritis 07/10/2006 Overview (02/05/2024): IMO update Immunizations Name Administration Dates Next Due Influenza Quadravalent, 0.5m l (Fluad) 65yo and older 12/05/2022,11/29/2021 Influenza trivalent, 0.5mL ( Fluad) 65yo and older 12/04/2016 Influenza trivalent, 0.5mL, preservative free (Fluarix; FluLaval; Fluzone) ages 6mo and older (Afluria) 3 years and older 11/27/2010,11/04/2009,12/12/2007,2006 Influenza, Unspecified 12/31/2022,2017,12/12/2014,2013,12/08/2011 [employer] SARS-CoV-2 COVID-19, mRNA, LNP-S, preservative free 12/31/2022,06/21/2021,01/19/2021 Pneumococcal conjugate 13 va lent (Prevnar 13, PCV13) 2mo and older 12/27/2017 Pneumococcal, Unspecified 12/12/2014,12/08/2011 Zoster Live 08/04/2011 Zoster recombinant (Shingrix ) 19yo and older 01/10/2020 Surgical History Surgery Date Site/Laterality Comments OTHER SURGICAL HISTORY PROCEDURE: ---- OTHER ----; COMMENT: left ovary removed BREAST LUMPECTOMY PROCEDURE: ---- BREAST LUMP BIOPSY ----; COMMENT: left CHOLECYSTECTOMY PROCEDURE: HISTORICAL CHOLECYSTECTOMY HERNIA REPAIR PROCEDURE: HISTORICAL HERNIA REPAIR/ING; COMMENT: right BUNIONECTOMY PROCEDURE: WY CORRJ HLX VLGS BNCTY SESMDC W/DOUBLE OSTEOTOMY BREAST BIOPSY Left PROCEDURE: BX BREAST; PERC NEEDLE CORE W/IMAG GUID; COMMENT: b9 1985 Medical History Medical History Date Comments Unspecified asthma(493.90) 07/10/2006 DX:Un specified asthma(493.90) Osteoarthrosis, unspecified whether generalized or localized, unspecified site 07/10/2006 DX:Osteoarthrosis, unspecifi ed whether generalized or localized, unspecified site Pure hypercholesterolemia 09/18/2006 DX:Pur e hypercholesterolemia Occlusion and stenosis of ca rotid artery without mention of cerebral infarction 09/18/2006 DX:Occlusion and stenosis of carotid artery without mention of cerebral infarction; COMMENT: R sisde mild to moderate by l;sharad screening Generalized anxiety disorder 09/18/2006 DX: Generalized anxiety disorder Cyst of thyroid 09/18/2006 DX:Cyst of thyro id Asthma 07/10/2006 DX:Asthma; COMME NT: Follows with [facility] in [place], Dr. Egan Family History Medical History Relation Name Comments Other: DM Aunt Colon cancer Brother 1 at age 42 Lung cancer Brother 2 at age 59, mets to bone Thyroid disease Daughter 1 thyroid ca Other: lymphoma Daughter 2 Heart attack Father from [place] at age 70 Other: black lung Father Stroke Maternal Grandmother at age 67 Basal cell carcinoma Mother Nose... by pts description of scar Hypertension Mother Breast cancer Neg Hx Relation Name Status Comments Aunt Brother 1 Brother 2 Daughter 1 Daughter 2 Father Maternal Grandmother Mother Social History Tobacco Use Types Packs/Day Years Used Date Smoking Tobacco: Former Cigarettes Smokeless Tobacco: Never Alcohol Use Standard Drinks/Week Comments Yes 0 (1 standard drink = 0.6 oz pur e alcohol) Sex and Gender Information Value Date Recorded Sex Assigned at Not on file Gender Identity Not on file Sexual Orientation Not on file Obstetrics History Last Filed Vital Signs Vital Sign Reading Time Taken Comments Blood Pressure 108/52 10/13/2023 2:45 PM EDT Sit ting L Arm Pulse 84 10/13/2023 2:45 PM EDT Temperature - - Respiratory Rate - - Oxygen Saturation - - Inhaled Oxygen Concentration - - Weight 64.9 kg (143 lb) 10/13/2023 2:45 PM EDT Height 157.5 cm (5' 2 ) 10/13/2023 2:45 PM EDT Body Mass Index 26.15 10/13/2023 2:45 PM EDT Plan of Treatment Upcoming Encounters Date Type Department Care Team (Late st Contact Info) Description 04/10/2024 2:30 PM EST Office Visit Adult Medicine [facility] [address] [place] [address] Mansi Carias MD [address] [place] [address] 10/14/2024 2:15 PM EDT Office Visit Pulmonolgy - [place] [address] [place] [phone] Whitney Hong MD [address] [place] [address] Health Maintenance Due Date Last Done Comments DTaP,Tdap,and Td Vaccines (1 - Tdap) 1954 RSV Immunization Patients 60+ Years Old (1 - 1-dose 75+ series) 2009 Pneumococcal Vaccine: 65+ Years (2 of 2 - PPSV23 or PCV20) 02/21/2018 12/27/2017, 12/12/2014, 12/08/2011 Zoster Vaccines (2 of 2) 03/06/2020 01/10/2020, 07/06 Falls Risk Assessment 02/12/2022 Hypertension/CHF/CAD Annual BMP Blood Test 02/12/2022 02/03/2021 Osteoporosis Screening (Bone Density Screening) 02/12/2022 Social Influencers of Health Screening 02/12/2022 COVID-19 Vaccine ( season) 2023 12/31/2022, 06/21/2021, 01/19/2021, Additional history exists Depression Screening 10/04/2024 10/05/2023 Medicare Annual Wellness Visit 10/04/2024 10/05/2023 Cholesterol Screening (Lipid Panel) 01/18/2028 01/17/2023 Influenza Vaccine Completed 11/21/2023, , 12/05/2022, Additional history exists HIB Vaccines Aged Out No longer eligi ble based on patient's age to complete this topic HPV Vaccines Aged Out No longer eligi ble based on patient's age to complete this topic Hepatitis A Vaccines Aged Out No long er eligible based on patient's age to complete this topic Hepatitis B Vaccines Aged Out No long er eligible based on patient's age to complete this topic IPV Vaccines Aged Out No longer eligi ble based on patient's age to complete this topic MMR Vaccines Aged Out No longer eligi ble based on patient's age to complete this topic Meningococcal ACWY Vaccine Aged Out N o longer eligible based on patient's age to complete this topic RSV Immunization Patients Under 20 months Aged Out No longer eligible based on patient's age to complete this topic Varicella Vaccines Aged Out No longer eligible based on patient's age to complete this topic Procedures Procedure Name Priority Date/Time Associated Diagnosis Comments DEPRESSION SCREENING Routine 10/05/2023 LIPID PANEL Routine 01/17/2023 ANNUAL BMP BLOOD TEST Routine 02/03/2021 from Last 3 Months or Most Recently Relevant to Health Maintenance Results * Depression Screening (10/05/2023) Pathologist [facility] Depression Screening abstracted Historical Provider MD LINCOLN Milton * Lipid panel (01/17/2023) [facility] LDL/HDL Ratio 3 0 - 4 Triglycerides 111 0 - 150 mg/dL Cholesterol 155 0 - 200 mg/dL HDL 58 40 mg/dL LDL Cholesterol 75 0 - 100 mg/dL Blood Venous blood specimen / Unknown Historical Provider LAB BLOOD ORDERAB LES * Annual BMP Blood Test (02/03/2021) Pathologist [facility] Annual BMP Blood Test abstracted Historical Provider MD LINCOLN Milton from Last 3 Months or Most Recently Relevant to Health Maintenance Care Teams Regional Loss Prevention Manager Relationship Specialty Start Date End Date Mansi Carias MD [address] [place] [address] PCP - General 07/07/06
--- OUTSIDE RECORDS SUMMARY | 2024-04-02 11:15 | XMS_ITS | Encounter Summary ---
Author Organization [facility] Address [address] [place] [address] Care Team Providers Care Animal Husbandman Name Role Phone Mansi Carias MD Primary Care Provider [phone] Jennie Milian MD Unavailable [phone] Encounter Details Date Type Department Care Team Description 12/09/2019 Orders Only Adult Medicine [address] [phone] Mansi Carias MD [address] [place] [address] [phone] Carotid atherosclerosis, unspecified laterality (Primary Dx) Social History Tobacco Use Types [...] on file documented as of this encounter Results * EXTRACRANIAL ARTERIES STUDY, COMPL (12/24/2019 2:56 PM EDT) 12/24/2019 3:12 PM EDT Impressions [place] [place] OTHER EXTERNAL - 12/24/2019 3:14 PM EDT No evidence of hemodynamically significant stenosis. ??Findings consistent with a 0-49% ICA stenoses. Narrative AGAPITO ESPINOZA OTHER EXTERNAL - 12/24/2019 3:14 PM EDT History: Follow-up for atherosclerosis. Carotid Doppler examination: Real-time, duplex and color Doppler examination of the carotid and vertebral arteries was performed bilaterally. Compared to 02/22/2016. ??Some intimal thickening is again noted in the visualized common carotid arteries. ??There is a trace of echogenic plaque posteriorly in the left carotid bulb extending into the proximal ICA, not significantly changed compared to previous. ??A trace of plaque at the left ECA origin was not seen previously. Waveforms, velocities and velocity ratios are normal throughout bilaterally. Vertebral flow is antegrade bilaterally, with normal waveforms. Procedure Note Gunnar Haley MD - 12/24/2019 History: Follow-up for atherosclerosis. Carotid Doppler examination: Real-time, duplex and color Dopplerexamination of the carotid and vertebral arteries was performed bilaterally. Compared to 02/22/2016.Some intimal thickening is again noted in the visualized common carotid arteries. There is atrace of echogenic plaque posteriorly in the left carotid bulb extending into the proximalICA, not significantly changed compared to previous. A trace of plaque at the left ECA originwas not seen previously. Waveforms, velocities and velocity ratios are normalthroughout bilaterally. Vertebral flow is antegrade bilaterally, with normal waveforms. IMPRESSION No evidence of hemodynamically significant stenosis. Findings consistentwith a 0-49% ICA stenoses. Mansi Carias MD VASCULAR ULTRASOUND AGAPITO ESPINOZA OTHER EXTERNAL documented in this encounter Visit Diagnoses Diagnosis Carotid atherosclerosis, unspecified laterality- Primary Carotid atherosclerosis, unspecified laterality documented in this encounter Care Teams Animal Husbandman Relationship Specialty Start Date End Date Mansi Carias MD [address] [place] [address] [phone] PCP - General 07/07/06 Jennie Milian MD [address] [place] [address] [phone] Specialist Cardiology 09/13/22 documented as of this encounter
--- OUTSIDE RECORDS SUMMARY | 2024-04-02 11:15 | XMS_ITS | Encounter Summary ---
Author Organization [facility] Address [address] [place] [address] Care Team Providers Care Applications Development Analyst Name Role Phone Mansi Carias MD Primary Care Provider [phone] Jennie Milian MD Unavailable [phone] Encounter Details Date Type Department Care Team Description 03/08/2011 Business Doc Medical Records [address] [place] [phone] Abstract, Provider Social History Tobacco Use Types [...] on filedocumented in this encounter Care Teams Applications Development Analyst Relationship Specialty Start Date End Date Mansi Carias MD [address] [place] [phone] PCP - General 07/07/06 Jennie Milian MD [address] [place] [address] [phone] Specialist Cardiology 09/13/22 documented as of this encounter
== END 2024-04-02 10:22 | disposition home or self-care (01) ==
LOC: HO.HOSX 10:21
DX: M25.512 Pain in left shoulder (principal); M75.22 Bicipital tendinitis, left shoulder
CPT/HCPCS: 73030; 99212

== ENCOUNTER 2024-04-02 14:53 | Outpatient (AMB) | payer MEDICARE, SELFPAY ==
--- NOTE | 2024-04-02 15:11 | MHC.OFFVIS ---
Vital Signs 04/02/24 15:16 Height 5 ft 3 in Weight 145 lb BMI 25.7 Intake Visit Reasons: NewProb-LT shoulder pain, DOI 02/14/24 Intake Note: Franny is an 88 year old right hand dominant female who presents today for a new problem visit of her left elbow pain. Patient reports she had a fall on 02/14/2024. Patient reports limited ROM, unable to lift arm above her heard to bring it to her back. Denies numbness or tingling. Denies prior injuries or surgeries to the shoulder. She is no longer wearing the sling she was given. She continues to take Aleve every 12 hours with relief. Allergies Penicillins Allergy (Severe, Verified 04/02/24 15:13) Hives Sulfa (Sulfonamide Antibiotics) Allergy (Mild, Verified 04/02/24 15:13) Hives HPI HPI NewProb-LT shoulder pain, DOI 02/14/24: Details: Patient is an 88-year-old female who presents for evaluation of left shoulder pain after a fall, date of injury 02/14/2024. Patient states she was evaluated at the urgent care at this time, where x-rays were taken revealing no fracture or acute bony abnormality, but she was told she may have an issue with 1 of the rotator cuff muscles or the biceps. Patient was placed in a sling at that time, but has since discontinued use of this. Today, the patient reports that her pain has improved, but she still does experience significant discomfort both on the lateral aspect of the left shoulder and on the volar aspect of the left elbow. Patient states that this pain worsens with range of motion, and states she is not able to forward flex the left shoulder fully due to pain. Denies any numbness or tingling in the left upper extremity. No other acute complaints or concerns at this time. [facility] Social History (Updated 04/02/24 @ 15:14 by ANDREA Wahl) Patient Tobacco Use Status: Former Tobacco user Current occupational status: retired Current occupation: rt hand Review of Systems Const All systems reviewed & are unremarkable except as noted in HPI and below Physical Exam Vital Signs: BMI result Body Mass Index 25.7 Extrem Other: Patient's left shoulder normal to inspection No erythema, ecchymosis, edema noted No lacerations, abrasions, open areas No evidence of infection Patient reports mild tenderness to palpation of the AC joint of the left shoulder No tenderness to palpation of the bicipital groove, greater tuberosity of the left humerus, radial head, or elsewhere in the left elbow or shoulder Pain with hyper pronation of the left forearm in the elbow Mildly positive empty can test in the left Negative belly press Distal sensation intact Capillary refill brisk Results Reviewed Results Reviewed: X-rays obtained in the office today and independently reviewed by me, Clyde Salmeron PA-C, demonstrate no fracture or acute bony abnormality of the left shoulder. Assessment & Plan Assessment & Plan (1) Biceps tendonitis on left: Code(s): M75.22 - Bicipital tendinitis, left shoulder Category: Medical Plan 1. Biceps tendinitis of left shoulder Patient is educated about this condition Patient is educated about the typical treatment course At this time, patient was referred to physical therapy for range of motion and strengthening of the left shoulder and treatment of biceps tendinitis Patient was amenable to this plan Patient was informed that if 6-8 weeks after starting physical therapy this is not improved, she should call us for repeat evaluation and potential referral for further imaging such as MRI Patient states understanding of this Patient will follow-up as needed with any acute concerns Orders: Orders XR shoulder LT min 2V 04/02/24 M25.512 - Pain in left shoulder PT Evaluation and Treatment 04/02/24 M75.22 - Bicipital tendinitis, left shoulder Coding Level of Care Code Est Pt Level 3 (99127) Diagnoses Biceps tendonitis on left M75.22
[2024-04-02 15:16] VITALS: BMI 25.7
--- OUTSIDE RECORDS SUMMARY | 2024-04-02 15:49 | XMS_ITS | Encounter Summary ---
Author Organization [facility] Address [address] [place] [address] Care Team Providers Care High School French Teacher Name Role Phone Mansi Carias MD Primary Care Provider [phone] Jennie Milian MD Unavailable [phone] Encounter Details Date Type Department Care Team Description 09/22/2017 Playground Supervisor Report Medical Records [address] [place] [phone] Anthony Brown MD Social History Tobacco Use [...] on filedocumented in this encounter Care Teams High School French Teacher Relationship Specialty Start Date End Date Mansi Carias MD [address] [place] [address] [phone] PCP - General 07/07/06 Jennie Milian MD [address] [place] [address] [phone] Specialist Cardiology 09/13/22 documented as of this encounter
--- OUTSIDE RECORDS SUMMARY | 2024-04-02 15:49 | XMS_ITS | Encounter Summary ---
Author Organization [facility] Address [address] [place] [address] Care Team Providers Care Melter Assistant Name Role Phone Mansi Carias MD Primary Care Provider [phone] Jennie Milian MD Unavailable [phone] Encounter Details Date Type Department Care Team Description 01/01/2010 Geopolitics Teacher Report Medical Records [address] [place] [id number] Rebel Johnson Social History Tobacco Use Types [...] on filedocumented in this encounter Care Teams Melter Assistant Relationship Specialty Start Date End Date Mansi Carias MD [address] [place] [phone] PCP - General 07/07/06 Jennie Milian MD [address] [place] [address] [phone] Specialist Cardiology 09/13/22 documented as of this encounter
--- OUTSIDE RECORDS SUMMARY | 2024-04-02 15:49 | XMS_ITS | Encounter Summary ---
Author Organization [facility] Address [address] [place] [address] Care Team Providers Care Finisher Merchant Products Name Role Phone Mansi Carias MD Primary Care Provider [phone] Jennie Milian MD Unavailable [phone] Encounter Details Date Type Department Care Team Description 01/26/2022 Telephone Adult Medicine [address] [address] Bruno Townsend PA-C [address] [place] [address] [phone] Social History Tobacco Use Types Packs/Day Years [...] encounter Miscellaneous Notes * Telephone Encounter - Desirae Castro - 02/01/2022 10:00 AM EST Called and left vm to return my call. * Telephone Encounter - Bruno Townsend PA-C - 01/26/2022 1:19 PM EST I can see this patient recently had a emergency department visit to [facility]. Can you please request the records and schedule this patient for emergency department follow-up. documented in this encounter Plan of Treatment Not on file documented as of this encounter Visit Diagnoses Not on filedocumented in this encounter Care Teams Finisher Merchant Products Relationship Specialty Start Date End Date Mansi Carias MD [address] [place] [address] [phone] PCP - General 07/07/06 Jennie Milian MD [address] [place] [address] [phone] Specialist Cardiology 09/13/22 documented as of this encounter
--- OUTSIDE RECORDS SUMMARY | 2024-04-02 15:49 | XMS_ITS | Encounter Summary ---
Author Organization [facility] Address [address] [place] [address] Care Team Providers Care Supervisor Pile Driving Name Role Phone Mansi Carias MD Primary Care Provider [phone] Jennie Milian MD Unavailable [phone] Encounter Details Date Type Department Care Team Description 04/19/2010 Notereader Report Medical Records [address] [place] [address] Daniel June MD Social History Tobacco Use [...] on filedocumented in this encounter Care Teams Supervisor Pile Driving Relationship Specialty Start Date End Date Mansi Carias MD [address] [place] [address] [phone] PCP - General 07/07/06 Jennie Milian MD [address] [place] [address] [phone] Specialist Cardiology 09/13/22 documented as of this encounter
--- OUTSIDE RECORDS SUMMARY | 2024-04-02 15:49 | XMS_ITS | Encounter Summary ---
Author Organization [facility] Address [address] [place] [address] Care Team Providers Care Home Energy Consultant Name Role Phone Mansi Carias MD Primary Care Provider [phone] Jennie Milian MD Unavailable [phone] Encounter Details Date Type Department Care Team Description 12/02/2022 SCAN Medical Records [address] [place] [address] [facility] Social History Tobacco Use Types [...] suspected to have Coronavirus/COVID-19? No / Unsure 12/02/2022 1:49 PM EDT documented as of this encounter Plan of Treatment Not on file documented as of this encounter Visit Diagnoses Not on filedocumented in this encounter Care Teams Home Energy Consultant Relationship Specialty Start Date End Date Mansi Carias MD [address] [place] [address] 7[address] PCP - General 07/07/06 Jennie Milian MD [address] [place] [address] 61374 Specialist Cardiology 09/13/22 documented as of this encounter
--- OUTSIDE RECORDS SUMMARY | 2024-04-02 15:49 | XMS_ITS | Encounter Summary ---
Author Organization [facility] Address [address] [place] [address] Care Team Providers Care Seamark Advanced Operator Maintainer Name Role Phone Mansi Carias MD Primary Care Provider [phone] Jennie Milian MD Unavailable [phone] Reason for Visit * Reason Onset Date Comments E-prescribe Rx Request 08/10/2020 Encounter Details Date Type Department Care Team Description 08/10/2020 Refill Adult Medicine [address] [phone] Mansi Carias MD [address] [place] [address] [phone] E-prescribe Rx Request Social History Tobacco Use [...] Telephone Encounter - Amelie Godinez M.A. - 08/10/2020 11:46 AM EDT Last office visit 04/17/20 Next office visit 10/08/20 Lab Results Component Value Date NA 145 12/09/2019 K 4.0 12/09/2019 CO2 25 12/09/2019 CL 111 12/09/2019 BUN 14 12/09/2019 CREAT 1.42 12/09/2019 GLU 98 12/09/2019 CA 9.2 12/09/2019 GFR 35 12/09/2019 Lab Results Component Value Date ALB 3.8 06/19/2018 SGOT 18 12/09/2019 SGPT 19 12/09/2019 TBILI 0.5 06/19/2018 ALKPHOS 65 06/19/2018 TP 6.4 06/19/2018 * Telephone Encounter - Shanita Galdamez - 08/10/2020 9:16 AM EDT Patient would like script to be: E-PRESCRIBED/FAXED TO PHARMACY WHEN WAS THE PATIENT'S LAST APPOINTMENT IN ADULT MEDICINE? 04/17/20 WHEN WAS THE LAST TIME THE PATIENT SAW THEIR PCP? Same as above Does patient have an upcoming appointment? Yes 10/08/20 (THE MEDICATION REQUESTED IS ON THE MED [...] / Plan: [place] / Product Type: MEDICARE [id number] documented in this encounter Plan of Treatment Not on file documented as of this encounter Visit Diagnoses Not on filedocumented in this encounter Care Teams Seamark Advanced Operator Maintainer Relationship Specialty Start Date End Date Mansi Carias MD [address] [place] [address] 74602 PCP - General 07/07/06 Jennie Milian MD [address] [place] [address] [phone] Specialist Cardiology 09/13/22 documented as of this encounter
--- OUTSIDE RECORDS SUMMARY | 2024-04-02 15:49 | XMS_ITS | Encounter Summary ---
Author Organization [facility] Address [address] [place] [address] Care Team Providers Care Engineering Leader Name Role Phone Mansi Carias MD Primary Care Provider [phone] Jennie Milian MD Unavailable [phone] Encounter Details Date Type Department Care Team Description 05/20/2021 Bench Molder Report Medical Records [address] [place] [address] [place] MD Social History Tobacco Use [...] on filedocumented in this encounter Care Teams Engineering Leader Relationship Specialty Start Date End Date Mansi Carias MD [address] [place] [address] [phone] PCP - General 07/07/06 Jennie Milian MD [address] [place] [address] [phone] Specialist Cardiology 09/13/22 documented as of this encounter
--- OUTSIDE RECORDS SUMMARY | 2024-04-02 15:49 | XMS_ITS | Encounter Summary ---
Author Organization [facility] Address [address] [place] [address] Care Team Providers Care Retail Pharmacy Manager Name Role Phone Mansi Carias MD Primary Care Provider [phone] Jennie Milian MD Unavailable [phone] Encounter Details Date Type Department Care Team Description 08/26/2021 Environmental Marketing Representative Report Medical Records [address] [place] [address] [place] MD Social History Tobacco Use [...] on filedocumented in this encounter Care Teams Retail Pharmacy Manager Relationship Specialty Start Date End Date Mansi Carias MD [address] [place] [address] [phone] PCP - General 07/07/06 Jennie Milian MD [address] [place] [address] 7[address]27 Specialist Cardiology 09/13/22 documented as of this encounter
--- OUTSIDE RECORDS SUMMARY | 2024-04-02 15:49 | XMS_ITS | Encounter Summary ---
Author Organization [facility] Address [address] [place] [address] Care Team Providers Care Automation And Controls Instructor Name Role Phone Mansi Carias MD Primary Care Provider [phone] Jennie Milian MD Unavailable [phone] Encounter Details Date Type Department Care Team Description 08/06/2014 Judicial Registrar Report Medical Records [address] [place] [address] 259[address] Slava Melvin Social History Tobacco Use Types [...] on filedocumented in this encounter Care Teams Automation And Controls Instructor Relationship Specialty Start Date End Date Mansi Carias MD [address] [place] [address] [phone] PCP - General 07/07/06 Jennie Milian MD [address] [place] [address] [phone] Specialist Cardiology 09/13/22 documented as of this encounter
--- OUTSIDE RECORDS SUMMARY | 2024-04-02 15:49 | XMS_ITS | Encounter Summary ---
Author Organization [facility] Address [address] [place] [address] Care Team Providers Care Toll Ticket Clerk Name Role Phone Mansi Carias MD Primary Care Provider Jennie Milian MD Unavailable [phone] Reason for Visit * Reason Comments E-prescribe Rx Request Encounter Details Date Type Department Care Team Description 03/14/2023 Refill Pulmonology - [place] 175 [facility] [address] [place] [address] Whitney Hong MD [address] [place] [address] E-prescribe Rx Request Social History Tobacco Use [...] encounter Miscellaneous Notes * Telephone Encounter - Krissy López - 03/15/2023 8:09 AM EST JAN 10/12/22 NOV 04/14/23 documented in this encounter Plan of Treatment Not on file documented as of this encounter Visit Diagnoses Not on filedocumented in this encounter Care Teams Toll Ticket Clerk Relationship Specialty Start Date End Date Mansi Carias MD [address] [place] [address] 12346 PCP - General 07/07/06 Jennie Milian MD [address] [place] [address] [phone] Specialist Cardiology 09/13/22 documented as of this encounter
--- OUTSIDE RECORDS SUMMARY | 2024-04-02 15:49 | XMS_ITS | Clinical Summary ---
Author Organization [facility], Address [address] [place] [address] [place] [address] Phone Care Team Providers Care M48 M60 Armor Crewman Name Role Phone Mansi Carias MD Primary Care Provider Allergies Active Allergy Reactions Criticality Noted Date [...] 1 (one) time each day 6 Active Shalimar 3 1000 MG capsule Take 1,000 mg [...] 09/18/2006 Asthma 07/10/2006 Overview (05/17/2019): Follows with credit portfolio manager in [place], Dr. Egan Immunizations Name Administration Dates Next [...] daughter thyroid , lymphoma Heart disease Father [place], CAD Cancer Mother basal cell Hypertension Mother [...] age to complete this topic Insurance MEDICARE [facility] Care Teams M48 M60 Armor Crewman Relationship Specialty Start Date End Date Mansi Carias MD PCP - General 01/08/19
--- OUTSIDE RECORDS SUMMARY | 2024-04-02 15:49 | XMS_ITS | Encounter Summary ---
Author Organization [facility] Address [address] [place] [address] Care Team Providers Care Outpatient Coding Specialist Name Role Phone Mansi Carias MD Primary Care Provider [phone] Jennie Milian MD Unavailable [phone] Encounter Details Date Type Department Care Team Description 02/08/2017 Game Room Attendant Report Medical Records [address] [place] [address] Anthony Brown MD Social History Tobacco Use [...] on filedocumented in this encounter Care Teams Outpatient Coding Specialist Relationship Specialty Start Date End Date Mansi Carias MD [address] [place] [address] [phone] PCP - General 07/07/06 Jennie Milian MD [address] [place] [address] [phone] Specialist Cardiology 09/13/22 documented as of this encounter
--- OUTSIDE RECORDS SUMMARY | 2024-04-02 15:49 | XMS_ITS | Encounter Summary ---
Author Organization [facility] Address [address] [place] [address] Care Team Providers Care Agency Appointments Supervisor Name Role Phone Mansi Carias MD Primary Care Provider [phone] Jennie Milian MD Unavailable [phone] Reason for Visit * Reason Onset Date Comments Prior Authorization 04/14/2023 Encounter Details Date Type Department Care Team Description 04/14/2023 Telephone Pulmonology - [place] 175 [facility] [address] [place] [address] Whitney Hong MD [address] [place] [address] Prior Authorization Social History Tobacco [...] My Meds request: Yes -- Moore Code [id number] Name of Medication SYMBICORT Dose of Medication 160-4.5 MCG/ACT AEROSOL What is the RX # from the faxed refill? How does patient take this med? What Pharmacy did the fax come from: [facility] Pharmacy fax #: [phone] Third [employer] Information from fax: What Prescription Plan does the patient have? BIN/PCN if applicable: Cardholder ID: Person Code: Relationship Code: Help desk phone: documented in this encounter Plan of Treatment Not on file documented as of this encounter Visit Diagnoses Not on filedocumented in this encounter Care Teams Agency Appointments Supervisor Relationship Specialty Start Date End Date Mansi Carias MD [address] [place] [address]65[address] PCP - General 07/07/06 Jennie Milian MD [address] [place] [phone] Specialist Cardiology 09/13/22 documented as of this encounter
--- OUTSIDE RECORDS SUMMARY | 2024-04-02 15:49 | XMS_ITS | Encounter Summary ---
Author Organization [facility] Address [address] [place] [address] Care Team Providers Care Rubber Press Operator Name Role Phone Mansi Carias MD Primary Care Provider [phone] Jennie Milian MD Unavailable [phone] Reason for Visit * Reason Onset Date Comments refill request 10/29/2018 Encounter Details Date Type Department Care Team Description 10/29/2018 Refill Adult Medicine [address] [phone] Mansi Carias MD [address] [place] [address] [phone] refill request Social History Tobacco Use Types [...] encounter Miscellaneous Notes * Telephone Encounter - Carmen Shane M.A. - 10/30/2018 9:54 AM EDT Lab Results Component Value Date ALB 3.8 06/19/2018 SGOT 19 06/19/2018 SGPT 21 06/19/2018 TBILI 0.5 06/19/2018 ALKPHOS 65 06/19/2018 TP 6.4 06/19/2018 Lab Results Component Value Date NA 143 06/19/2018 K 3.9 06/19/2018 CO2 25 06/19/2018 CL 110 06/19/2018 BUN 17 06/19/2018 CREAT 1.44 06/19/2018 GLU 107 06/19/2018 CA 8.5 06/19/2018 GFR 35 06/19/2018 * Telephone Encounter - Kelly Montanez - 10/29/2018 11:24 AM EDT Patient would like script to be: E-PRESCRIBED/FAXED TO PHARMACY WHEN WAS THE PATIENT'S LAST APPOINTMENT IN ADULT MEDICINE? 07/02/2018 WHEN WAS THE LAST TIME THE PATIENT SAW THEIR PCP? Same as above Does patient have an upcoming appointment? Yes 12/03/2018 (THE MEDICATION REQUESTED IS ON THE MED [...] / Plan: [place] / Product Type: MEDICARE [id number] documented in this encounter Plan of Treatment Not on file documented as of this encounter Visit Diagnoses Not on filedocumented in this encounter Care Teams Rubber Press Operator Relationship Specialty Start Date End Date Mansi Carias MD [address] [place] [address] 13586 PCP - General 07/07/06 Jennie Milian MD [address] [place] [address] Specialist Cardiology 09/13/22 documented as of this encounter
--- OUTSIDE RECORDS SUMMARY | 2024-04-02 15:49 | XMS_ITS | Encounter Summary ---
Author Organization [facility] Address [address] [place] [address] Care Team Providers Care Munitions Factory Worker Name Role Phone Mansi Carias MD Primary Care Provider [phone] Jennie Milian MD Unavailable [phone] Reason for Visit * Reason Onset Date Comments Prior Authorization 06/03/2022 Encounter Details Date Type Department Care Team Description 06/03/2022 Telephone Pulmonology - [place] 175 [facility] [address] [place] [address] Whitney Hong MD [address] [place] [address] Prior Authorization Social History Tobacco [...] Telephone Encounter - Ailyn Holman M.A. - 06/07/2022 3:10 PM EDT PER INSURANCE, MED DENIED PT MUST TRY THE 232-14 MCG/ACT DOSING OF THE MED FIRST AND FAIL THIS Ailyn Holman Prior Auth Dep Ext [id number] * Telephone Encounter - Ailyn Holman M.A. - 06/03/2022 1:12 PM EDT AUTH SENT WITH COVER MY MEDS DX:ASTHMA TRIED SEREVENT Ailyn Holman Prior Auth Dep Ext [id number] * Telephone Encounter - Krissy López - 06/03/2022 11:09 AM EDT Prior Authorization for Medication-do not complete and send this encounter unless you have the fax from the pharmacy. Is this a Cover My Meds request: Yes -- Moore Code [id number] Name of Medication FLUTICASONE-SALMETEROL Dose of Medication 113-14 MCG/ACT AEROSOL POWDER What is the RX # from the faxed refill? How does patient take this med? What Pharmacy did the fax come from: [facility] Pharmacy fax #: [phone] Third Libertarian Information from fax: What Prescription Plan does the patient have? BIN/PCN if applicable: Cardholder ID: Person Code: Relationship Code: Help desk phone: documented in this encounter Plan of Treatment Not on file documented as of this encounter Visit Diagnoses Not on filedocumented in this encounter Care Teams Munitions Factory Worker Relationship Specialty Start Date End Date Mansi Carias MD [address] [place] [address] [phone] PCP - General 07/07/06 Jennie Milian MD [address] [place] [address] [phone] Specialist Cardiology 09/13/22 documented as of this encounter
--- OUTSIDE RECORDS SUMMARY | 2024-04-02 15:49 | XMS_ITS | Encounter Summary ---
Author Organization [facility] Address [address] [place] [address] Care Team Providers Care Boiler Setter Name Role Phone Mansi Goddard MD Primary Care Provider [phone] Jennie Milian MD Unavailable [phone] Reason for Visit * Reason Onset Date Comments Provider Call Back 01/29/2013 Dr Goddard Encounter Details Date Type Department Care Team Description 01/29/2013 Telephone Adult Medicine [address] [phone] Mansi Goddard MD [address] [place] [address] [phone] Provider Call Back (Dr Goddard) Social History Tobacco Use Types Packs/Day Years [...] encounter Miscellaneous Notes * Telephone Encounter - Rosa Wells - 01/29/2013 10:33 AM EST Message left for patient to call * Telephone Encounter - Luda Araujo M.A. - 01/29/2013 10:04 AM EST Is pt aware that dr goddard is out of the office til mar?? * Telephone Encounter - Miguelina Anderson - 01/29/2013 9:26 AM EST Caller requesting call back from provider: Mansi Goddard Is the caller the patient? YES If caller is not the patient, what is the callers name? N/A Callers relationship to patient? N/A If person calling is not the patient themselves, is there a verbal release in FYI or permanent comments for this person: Reason for call back: Pt would like to speak to Dr Goddard concerning a kidney Dr pt has been referred, as she would like to know how serious she health issue is, please call pt and advise. Caller offered to speak with the nurse for assistance: YES Response: Patient offered to speak with nurse for assistance and patient agreed. Message forwarded to nurse. documented in this encounter Plan of Treatment Not on file documented as of this encounter Visit Diagnoses Not on filedocumented in this encounter Care Teams Boiler Setter Relationship Specialty Start Date End Date Mansi Goddard MD [address] [place] [address] 30615 PCP - General 07/07/06 Jennie Milian MD [address] [place] [address] 18752 Specialist Cardiology 09/13/22 documented as of this encounter
--- OUTSIDE RECORDS SUMMARY | 2024-04-02 15:49 | XMS_ITS | Encounter Summary ---
Author Organization [facility] Address [address] [place] [address] Care Team Providers Care Director Auto Name Role Phone Mansi Carias MD Primary Care Provider [phone] Jennie Milian MD Unavailable [phone] Reason for Visit * Reason Onset Date Comments Prior Authorization 06/01/2022 Encounter Details Date Type Department Care Team Description 06/01/2022 Telephone Pulmonology - [place] 175 [facility] [address] [place] [address] Whitney Hong MD [address] [place] [address] Prior Authorization Social History Tobacco [...] My Meds request: Yes -- Moore Code [id number] Name of Medication FLUTICASONE-SALMETEROL Dose of Medication 113-14 MCG/ACT AEROSOL POWDER What is the RX # from the faxed refill? How does patient take this med? What Pharmacy did the fax come from: [facility] Pharmacy fax #: [phone] Third [employer] Party Information from fax: What Prescription Plan does the patient have? BIN/PCN if applicable: Cardholder ID: Person Code: Relationship Code: Help desk phone: documented in this encounter Plan of Treatment Not on file documented as of this encounter Visit Diagnoses Diagnosis Mild persistent asthma, unspecified whether complicated- Primary documented in this encounter Care Teams Director Auto Relationship Specialty Start Date End Date Mansi Carias MD [address] [place] [address] 26730 PCP - General 07/07/06 Jennie Milian MD [address] [place] [address] 49302 Specialist Cardiology 09/13/22 documented as of this encounter
--- OUTSIDE RECORDS SUMMARY | 2024-04-02 15:49 | XMS_ITS | Encounter Summary ---
Author Organization [facility] Address [address] [place] [address] Care Team Providers Care Sale Professional Digital Marketing Name Role Phone Mansi Carias MD Primary Care Provider [phone] Jennie Milian MD Unavailable [phone] Encounter Details Date Type Department Care Team Description 04/04/2018 Orthopedic Nurse Report Medical Records [address] [place] [address] 33086 Anthony Brown MD Social History Tobacco Use [...] on filedocumented in this encounter Care Teams Sale Professional Digital Marketing Relationship Specialty Start Date End Date Mansi Carias MD [address] [place] [address] [phone] PCP - General 07/07/06 Jennie Milian MD [address] [place] [address] [phone] Specialist Cardiology 09/13/22 documented as of this encounter
--- OUTSIDE RECORDS SUMMARY | 2024-04-02 15:49 | XMS_ITS | Encounter Summary ---
Author Organization [facility] Address [address] [place] [address] Care Team Providers Care Flying Squad Salesperson Name Role Phone Mansi Carias MD Primary Care Provider [phone] Jennie Milian MD Unavailable [phone] Encounter Details Date Type Department Care Team Description 10/21/2009 Work Manager Report Medical Records [address] [place] [address] Rebel Johnson Social History Tobacco Use Types [...] on filedocumented in this encounter Care Teams Flying Squad Salesperson Relationship Specialty Start Date End Date Mansi Carias MD [address] [place] [address] 01020 PCP - General 07/07/06 Jennie Milian MD [address] [place] [address] [phone] Specialist Cardiology 09/13/22 documented as of this encounter
--- OUTSIDE RECORDS SUMMARY | 2024-04-02 15:49 | XMS_ITS | Encounter Summary ---
Author Organization [facility] Address [address] [place] [address] Care Team Providers Care Hvac Design Mechanical Engineer Name Role Phone Mansi Carias MD Primary Care Provider [phone] Jennie Milian MD Unavailable [phone] Encounter Details Date Type Department Care Team Description 09/08/2021 Business Doc Medical Records [address] [place] [address] 54830 Abstract, Provider Social History Tobacco Use Types [...] suspected to have Coronavirus/COVID-19? No / Unsure 09/02/2021 1:37 PM EDT documented as of this encounter Plan of Treatment Not on file documented as of this encounter Visit Diagnoses Not on filedocumented in this encounter Care Teams Hvac Design Mechanical Engineer Relationship Specialty Start Date End Date Mansi Carias MD [address] [place] [address] [phone] PCP - General 07/07/06 Jennie Milian MD [address] [place] [address] 86400 Specialist Cardiology 09/13/22 documented as of this encounter
--- OUTSIDE RECORDS SUMMARY | 2024-04-02 15:49 | XMS_ITS | Encounter Summary ---
Author Organization [facility] Address [address] [place] [address] Care Team Providers Care Stranding Supervisor Name Role Phone Mansi Carias MD Primary Care Provider Jennie Milian MD Unavailable [phone] Reason for Visit * Reason Comments E-prescribe Rx Request Encounter Details Date Type Department Care Team Description 10/03/2022 Refill Adult Medicine [facility] [address] [place] [address] [phone] Dany Price, AUDIO VISUAL PROJECT MANAGER [address] [place], [place] [phone] E-prescribe Rx Request Social History Tobacco Use [...] on filedocumented in this encounter Care Teams Stranding Supervisor Relationship Specialty Start Date End Date Mansi Carias MD [address] [place] [address] 43376 PCP - General 07/07/06 Jennie Milian MD [address] [place] [address] 32854 Specialist Cardiology 09/13/22 documented as of this encounter
--- OUTSIDE RECORDS SUMMARY | 2024-04-02 15:49 | XMS_ITS | Encounter Summary ---
Author Organization [facility] Address [address] [place] [address] Care Team Providers Care Bushing And Broach Operator Name Role Phone Mansi Carias MD Primary Care Provider [phone] Jennie Milian MD Unavailable [phone] Encounter Details Date Type Department Care Team Description 12/15/2015 Sterilization Technician Report Medical Records [address] [place] [address]37 Fausto Armando MD Social History Tobacco Use [...] on filedocumented in this encounter Care Teams Bushing And Broach Operator Relationship Specialty Start Date End Date Mansi Carias MD [address] [place] [address] [phone] PCP - General 07/07/06 Jennie Milian MD [address] [place] [address] [phone] Specialist Cardiology 09/13/22 documented as of this encounter
--- OUTSIDE RECORDS SUMMARY | 2024-04-02 15:49 | XMS_ITS | Encounter Summary ---
Author Organization [facility] Address [address] [place] [address] Phone Care Team Providers Care Surveyor Geodetic Name Role Phone Mansi Carias MD Primary Care Provider [phone] Encounter Details Date Type Department Care Team (Late st Contact Info) Description 10/03/2022 Documentation Only [facility] [address] [place] [id number] Anthony Brown MD [address] [place] [place] [address] Social History Tobacco Use Types [...] on filedocumented in this encounter Care Teams Surveyor Geodetic Relationship Specialty Start Date End Date Mansi Carias MD PCP - General 01/08/19 documented as of this encounter
--- OUTSIDE RECORDS SUMMARY | 2024-04-02 15:49 | XMS_ITS | Encounter Summary ---
Author Organization [facility] Address [address] [place] [address] Care Team Providers Care Skinner Pelts Name Role Phone Mansi Carias MD Primary Care Provider [phone] Jennie Milian MD Unavailable [phone] Reason for Visit * Reason Onset Date Comments Prior Authorization 09/08/2023 Encounter Details Date Type Department Care Team Description 09/08/2023 Telephone Pulmonology - [place] [address] [facility] [address] [place] [address] Whitney Hong MD [address] [place] [address] Prior Authorization Social History Tobacco [...] your prescription, please have them call the [facility] pharmacy help desk at . * Telephone Encounter - Clarisa Vyas M.A. - 09/12/2023 10:35 AM EDT Prior authorization completed today on [facility] for the air duo. Dx code J45.909 asthma Continuation of therapy * Telephone Encounter - Betsy Gallagher - 09/08/2023 1:36 PM EDT Prior Authorization for Medication-do not complete and send this encounter unless you have the fax from the pharmacy. Is this a Cover My Meds request: Yes -- Moore Code [id number] Name of Medication FLUTICASONE-SALMETEROL Dose of Medication 113-14MCG/ACT What is the RX # from the faxed refill? How does patient take this med? Aerosol powder What Pharmacy did the fax come from: [facility] fax #: [phone] Third Libertarian Information from fax: What Prescription Plan does the patient have? BIN/PCN if applicable: Cardholder ID: Person Code: Relationship Code: Help desk phone: [phone] documented in this encounter Plan of Treatment Not on file documented as of this encounter Visit Diagnoses Not on filedocumented in this encounter Care Teams Skinner Pelts Relationship Specialty Start Date End Date Mansi Carias MD [address] [place] [address] [phone] PCP - General 07/07/06 Jennie Milian MD [address] [place] [address] [phone] Specialist Cardiology 09/13/22 documented as of this encounter
--- OUTSIDE RECORDS SUMMARY | 2024-04-02 15:49 | XMS_ITS | Encounter Summary ---
Author Organization [facility] Address [address] [place] [address] Care Team Providers Care Head Mixer Name Role Phone Mansi Carias MD Primary Care Provider Jennie Milian MD Unavailable [phone] Encounter Details Date Type Department Care Team Description 08/19/2021 Confidential Secretary Report Medical Records [address] [place] [address] [place] MD Social History Tobacco Use [...] filedocumented in this encounter Care Teams Head Mixer Relationship Specialty Start Date End Date Mansi Carias MD [address] [place] [address] [phone] PCP - General 07/07/06 Jennie Milian MD [address] [place] [address] 67[address] Specialist Cardiology 09/13/22 documented as of this encounter
--- OUTSIDE RECORDS SUMMARY | 2024-04-02 15:49 | XMS_ITS | Encounter Summary ---
Author Organization [facility] Address [address] [place] [address] Care Team Providers Care Juvenile Counselor Name Role Phone Mansi Carias MD Primary Care Provider Jennie Milian MD Unavailable [phone] Reason for Visit * Reason Onset Date Comments refill request 08/14/2018 Encounter Details Date Type Department Care Team Description 08/14/2018 Refill Adult Medicine [address] [id number] Mansi Carias MD [address] [place] [address] [phone] refill request Social History Tobacco Use Types [...] / Plan[place] / Product Type: MEDICARE [id number] documented in this encounter Plan of Treatment Not on file documented as of this encounter Visit Diagnoses Not on filedocumented in this encounter Care Teams Juvenile Counselor Relationship Specialty Start Date End Date Mansi Carias MD [address] [place] [address] PCP - General 07/07/06 Jennie Milian MD [address] [place] [address] Specialist Cardiology 09/13/22 documented as of this encounter
--- OUTSIDE RECORDS SUMMARY | 2024-04-02 15:49 | XMS_ITS | Encounter Summary ---
Author Organization [facility] Address [address] [place] [address] Care Team Providers Care Sheep Herder Name Role Phone Mansi Carias MD Primary Care Provider [phone] Jennie Milian MD Unavailable [phone] Encounter Details Date Type Department Care Team Description 11/16/2016 Automation Software Engineer Report Medical Records [address] [place] [address] Abstract, Provider Social History Tobacco Use Types [...] on filedocumented in this encounter Care Teams Sheep Herder Relationship Specialty Start Date End Date Mansi Carias MD [address] [place] [address] [phone] PCP - General 07/07/06 Jennie Milian MD [address] [place] [address] [phone] Specialist Cardiology 09/13/22 documented as of this encounter
--- OUTSIDE RECORDS SUMMARY | 2024-04-02 15:49 | XMS_ITS | Encounter Summary ---
Author Organization [facility] Address [address] [place] [address] Care Team Providers Care Injection Molder Name Role Phone Mansi Carias MD Primary Care Provider Jennie Milian MD Unavailable [phone] Reason for Visit * Reason Comments E-prescribe Rx Request Encounter Details Date Type Department Care Team Description 12/12/2020 Refill Adult Medicine [address] [phone] Mansi Carias MD [address] [place] [address] [phone] E-prescribe Rx Request Social History Tobacco Use [...] insurance carrier is: Pay[place] / Plan[place] / Product Type: MEDICARE [id number] documented in this encounter Plan of Treatment Not on file documented as of this encounter Visit Diagnoses Not on filedocumented in this encounter Care Teams Injection Molder Relationship Specialty Start Date End Date Mansi Carias MD [address] [place] [address] [phone] PCP - General 07/07/06 Jennie Milian MD [address] [place] [phone] Specialist Cardiology 09/13/22 documented as of this encounter
--- OUTSIDE RECORDS SUMMARY | 2024-04-02 15:49 | XMS_ITS | Encounter Summary ---
Author Organization [facility] Address [address] [place] [address] Care Team Providers Care Philosophy Lecturer Name Role Phone Mansi Carias MD Primary Care Provider [phone] Jennie Milian MD Unavailable [phone] Reason for Visit * Reason Comments E-prescribe Rx Request Encounter Details Date Type Department Care Team Description 07/08/2017 Refill Adult Medicine [address] [phone] Mansi Carias MD [address] [place] [address] [phone] E-prescribe Rx Request Social History Tobacco Use Types Packs/Day Years Used Date Smoking Tobacco: Former Smokeless Tobacco: Never Comments:quit 1986 Alcohol Use Standard Drinks/Week Comments Yes 0 (1 standard drink = 0.6 oz pur e alcohol) a glass of wine, now and then Sex Assigned at Date Recorded Not on file Job Start Date Occupation Industry Not on file Not on file Not on file documented as of this encounter Miscellaneous Notes * Telephone Encounter - Lesley Mariscal - 07/10/2017 11:26 AM EDT Patient would like script to be: E-PRESCRIBED/FAXED TO PHARMACY WHEN WAS THE PATIENT'S LAST APPOINTMENT IN ADULT MEDICINE? 02/02/17 WHEN WAS THE LAST TIME THE PATIENT SAW THEIR PCP? Same as above Does patient have an upcoming appointment? Yes 07/12/17 (THE MEDICATION REQUESTED IS ON THE MED LIST ABOVE) All of the medications requested were on the CURRENT MEDS list Did you check the Pharmacy information above?: YES Patient wants: 90 -day supply Is this a mail order prescription request ? NO Patients current insurance carrier is: Payor: MEDICARE-Jack Erwin / [place] / Product Type: MEDICARE [id number] documented in this encounter Plan of Treatment Not on file documented as of this encounter Visit Diagnoses Not on filedocumented in this encounter Care Teams Philosophy Lecturer Relationship Specialty Start Date End Date Mansi Carias MD [address] [place] [address] [phone] PCP - General 07/07/06 Jennie Milian MD [address] [place] [address] [phone] Specialist Cardiology 09/13/22 documented as of this encounter
--- OUTSIDE RECORDS SUMMARY | 2024-04-02 15:49 | XMS_ITS | Encounter Summary ---
Author Organization [facility] Address [address] [place] [address] Care Team Providers Care Farm Equipment Mechanic Apprentice Name Role Phone Mansi Carias MD Primary Care Provider [phone] Jennie Milian MD Unavailable [phone] Encounter Details Date Type Department Care Team Description 03/12/2013 Business Doc Medical Records [address] [place] [phone] Abstract, Provider Social History Tobacco Use Types [...] on filedocumented in this encounter Care Teams Farm Equipment Mechanic Apprentice Relationship Specialty Start Date End Date Mansi Carias MD [address] [place] [address] [phone] PCP - General 07/07/06 Jennie Milian MD [address] [place] [address] [phone] Specialist Cardiology 09/13/22 documented as of this encounter
--- OUTSIDE RECORDS SUMMARY | 2024-04-02 15:49 | XMS_ITS | Encounter Summary ---
Author Organization [facility] Address [address] [place] [address] Care Team Providers Care Chief Compliance Officer Name Role Phone Mansi Carias MD Primary Care Provider [phone] Jennie Milian MD Unavailable [phone] Encounter Details Date Type Department Care Team Description 11/21/2017 Welt Wheeler Report Medical Records [address] [place] [address] Abstract, Provider Social History Tobacco Use Types [...] on filedocumented in this encounter Care Teams Chief Compliance Officer Relationship Specialty Start Date End Date Mansi Carias MD [address] [place] [address] [phone] PCP - General 07/07/06 Jennie Milian MD [address] [place] [address] [phone] Specialist Cardiology 09/13/22 documented as of this encounter
--- OUTSIDE RECORDS SUMMARY | 2024-04-02 15:49 | XMS_ITS | Encounter Summary ---
Author Organization [facility] Address [address] [place] [address] Care Team Providers Care Flight Engineer Inspector Name Role Phone Mansi Carias MD Primary Care Provider [phone] Jennie Milian MD Unavailable [phone] Encounter Details Date Type Department Care Team Description 01/21/2013 And Drying Supervisor Cooking Casing Report Medical Records [address] [place] [address] David Russ Social History Tobacco Use Types [...] on filedocumented in this encounter Care Teams Flight Engineer Inspector Relationship Specialty Start Date End Date Mansi Carias MD [address] [place] [address] [phone] PCP - General 07/07/06 Jennie Milian MD [address] [place] [address] [phone] Specialist Cardiology 09/13/22 documented as of this encounter
--- OUTSIDE RECORDS SUMMARY | 2024-04-02 15:50 | XMS_ITS | Encounter Summary ---
Author Organization [facility] Address [address] [place] [address] Care Team Providers Care Grain Combiner Name Role Phone Mansi Carias MD Primary Care Provider [phone] Jennie Milian MD Unavailable [phone] Encounter Details Date Type Department Care Team Description 08/13/2015 Hospital Medical Records [address] [place] [address] Fausto Armando MD Social History Tobacco Use [...] on filedocumented in this encounter Care Teams Grain Combiner Relationship Specialty Start Date End Date Mansi Carias MD [address] [place] [address] [phone] PCP - General 07/07/06 Jennie Milian MD [address] [place] [address] [phone] Specialist Cardiology 09/13/22 documented as of this encounter
--- OUTSIDE RECORDS SUMMARY | 2024-04-02 15:50 | XMS_ITS | Encounter Summary ---
Author Organization [facility] Address [address] [place] [address] Care Team Providers Care Yacht Captain Name Role Phone Mansi Carias MD Primary Care Provider [phone] Jennie Milian MD Unavailable [phone] Reason for Visit * Reason Onset Date Comments Faxed Refill 06/17/2020 Encounter Details Date Type Department Care Team Description 06/17/2020 Refill Adult Medicine [address] [phone] Mansi Carias MD [address] [place] [address] [phone] Faxed Refill Social History Tobacco Use Types [...] Telephone Encounter - Mariah Do M.A. - 06/17/2020 10:26 AM EDT Lab Results Component Value Date NA 145 12/09/2019 K 4.0 12/09/2019 CO2 25 12/09/2019 CL 111 12/09/2019 BUN 14 12/09/2019 CREAT 1.42 12/09/2019 GLU 98 12/09/2019 CA 9.2 12/09/2019 GFR 35 12/09/2019 Last appt with pcp 04/17/20 * Telephone Encounter - Sujey Rust - 06/17/2020 8:46 AM EDT Patient would like script to be: E-PRESCRIBED/FAXED TO PHARMACY WHEN WAS THE PATIENT'S LAST APPOINTMENT IN ADULT MEDICINE? 04/17/2020 WHEN WAS THE LAST TIME THE PATIENT SAW THEIR PCP? Same as above Does patient have an upcoming appointment? No-[facility] due to refill request. Appt due (THE MEDICATION REQUESTED IS ON THE MED [...] / Plan: [place] / Product Type: MEDICARE [id number] documented in this encounter Plan of Treatment Not on file documented as of this encounter Visit Diagnoses Not on filedocumented in this encounter Care Teams Yacht Captain Relationship Specialty Start Date End Date Mansi Carias MD [address] [place] [address] [phone] PCP - General 07/07/06 Jennie Milian MD [address] [place] [address] 07018 Specialist Cardiology 09/13/22 documented as of this encounter
--- OUTSIDE RECORDS SUMMARY | 2024-04-02 15:50 | XMS_ITS | Encounter Summary ---
Author Organization [facility] Address [address] [place] [address] Care Team Providers Care Spot Washer Name Role Phone Mansi Carias MD Primary Care Provider [phone] Jennie Milian MD Unavailable [phone] Reason for Visit * Reason Onset Date Comments Call From Md Office 08/13/2015 Encounter Details Date Type Department Care Team Description 08/13/2015 Telephone Adult Medicine [address] [phone] Mansi Carias MD [address] [place] [address] [phone] Call From Md Office Social History Tobacco [...] on filedocumented in this encounter Care Teams Spot Washer Relationship Specialty Start Date End Date Mansi Carias MD [address] [place] [address] 88878 PCP - General 07/07/06 Jennie Milian MD [address] [place] [address] 56526 Specialist Cardiology 09/13/22 documented as of this encounter
--- OUTSIDE RECORDS SUMMARY | 2024-04-02 15:50 | XMS_ITS | Clinical Summary ---
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 Egan Osteoarthritis 07/10/2006 Overview (02/05/2024): IMO update Immunizations Name Administration Dates Next Due Influenza Quadravalent, 0.5m l (Fluad) 65yo and older 12/05/2022,11/29/2021 Influenza trivalent, 0.5mL ( Fluad) 65yo and older 12/04/2016 Influenza trivalent, 0.5mL, preservative free (Fluarix; FluLaval; Fluzone) ages 6mo and older (Afluria) 3 years and older 11/27/2010,11/04/2009,12/12/2007,2006 Influenza, Unspecified 12/31/2022,2017,12/12/2014,2013,12/08/2011 M-Audio SARS-CoV-2 COVID-19, mRNA, LNP-S, preservative free 12/31/2022,06/21/2021,01/19/2021 [...] HISTORICAL HERNIA REPAIR/ING; COMMENT: right BUNIONECTOMY PROCEDURE: GA CORRJ HLX VLGS BNCTY SESMDC W/DOUBLE OSTEOTOMY [...] Asthma 07/10/2006 DX:Asthma; COMME NT: Follows with supervisor metalizing in [place], Dr. Egan Family History Medical History Relation [...] on file Sexual Orientation Not on file Job Start Date Occupation Industry Not on file Not on file Not on file Obstetrics History Last Filed [...] Visit Adult Medicine [facility] [address] [place] [address] Mansi Carias MD [address] [place] [address] 04/12/2024 3:00 PM EST Office Visit [facility] [address] [facility] [address] [place] [address] Jennie Milian MD [address] [place] [address] 10/14/2024 2:15 PM EDT Office Visit Pulmonolgy - [place] 175 [facility] [address] [place] [address] Whitney Hong MD 175 [facility] [address] [place] [address] Health Maintenance Due Date Last Done Comments [...] Maintenance Results * Depression Screening (10/05/2023) Pathologist [facility] Depression Screening abstracted Historical Provider MD LINCOLN BARR E * Lipid panel (01/17/2023) [facility] LDL/HDL Ratio 3 0 - 4 Triglycerides 111 0 - 150 mg/dL Cholesterol 155 0 - 200 mg/dL HDL 58 40 mg/dL LDL Cholesterol 75 0 - 100 mg/dL Blood Venous blood specimen / Unknown Historical Provider LAB BLOOD ORDERAB LES * Annual BMP Blood Test (02/03/2021) Pathologist [facility] Annual BMP Blood Test abstracted Historical Provider MD LINCOLN Milton from Last 3 Months or Most Recently Relevant to Health Maintenance Care Teams Singing Telegram Performer Relationship Specialty Start Date End Date Mansi Carias MD [address] [place] [address] PCP - General 07/07/06
--- OUTSIDE RECORDS SUMMARY | 2024-04-02 15:50 | XMS_ITS | Encounter Summary ---
Author Organization [facility] Address [address] [place] [address] Care Team Providers Care Photoengraving Apprentice Name Role Phone Mansi Carias MD Primary Care Provider [phone] Jennie Milian MD Unavailable [phone] Encounter Details Date Type Department Care Team Description 03/19/2015 Business Doc Medical Records [address] [place] [address]59 Abstract, Provider Social History Tobacco Use Types [...] on filedocumented in this encounter Care Teams Photoengraving Apprentice Relationship Specialty Start Date End Date Mansi Carias MD [address] [place] [address] [phone] PCP - General 07/07/06 Jennie Milian MD [address] [place] [address] [phone] Specialist Cardiology 09/13/22 documented as of this encounter
--- OUTSIDE RECORDS SUMMARY | 2024-04-02 15:50 | XMS_ITS | Encounter Summary ---
Author Organization [facility] Address [address] [place] [address] Care Team Providers Care Janitorial Supervisor Name Role Phone Mansi Carias MD Primary Care Provider [phone] Jennie Milian MD Unavailable [phone] Encounter Details Date Type Department Care Team Description 01/05/2015 Orders Only Nephrology - [place] [address] [place] [address] Anthony Brown MD Social History Tobacco Use [...] on filedocumented in this encounter Care Teams Janitorial Supervisor Relationship Specialty Start Date End Date Mansi Carias MD [address] [place] [address] [phone] PCP - General 07/07/06 Jennie Milian MD [address] [place] [address] [phone] Specialist Cardiology 09/13/22 documented as of this encounter
--- OUTSIDE RECORDS SUMMARY | 2024-04-02 15:50 | XMS_ITS | Encounter Summary ---
Author Organization [facility] Address [address] [place] [address] Care Team Providers Care Vascular Sonographer Name Role Phone Mansi Carias MD Primary Care Provider [phone] Jennie Milian MD Unavailable [phone] Encounter Details Date Type Department Care Team Description 12/02/2010 Tenter Feeder Report Medical Records [address] [place] [address] David Russ Social History Tobacco Use Types [...] on filedocumented in this encounter Care Teams Vascular Sonographer Relationship Specialty Start Date End Date Mansi Carias MD [address] [place] [address] [phone] PCP - General 07/07/06 Jennie Milian MD [address] [place] [address] [phone] Specialist Cardiology 09/13/22 documented as of this encounter
--- OUTSIDE RECORDS SUMMARY | 2024-04-02 15:50 | XMS_ITS | Encounter Summary ---
Author Organization [facility] Address [address] [place] [address] Care Team Providers Care Parts Salesman Name Role Phone Mansi Carias MD Primary Care Provider [phone] Jennie Milian MD Unavailable [phone] Encounter Details Date Type Department Care Team Description 03/08/2011 Business Doc Medical Records [address] [place] [address]70 Abstract, Provider Social History Tobacco Use Types [...] on filedocumented in this encounter Care Teams Parts Salesman Relationship Specialty Start Date End Date Mansi Carias MD [address] [place] [address]20 PCP - General 07/07/06 Jennie Milian MD [address] [place] [address] [phone] Specialist Cardiology 09/13/22 documented as of this encounter
--- OUTSIDE RECORDS SUMMARY | 2024-04-02 15:50 | XMS_ITS | Encounter Summary ---
Author Organization [facility] Address [address] [place] [address] Care Team Providers Care Cargoman Name Role Phone Mansi Carias MD Primary Care Provider [phone] Jennie Milian MD Unavailable [phone] Encounter Details Date Type Department Care Team Description 08/13/2015 Hospital Medical Records [address] [place] [address] Rozina Betts MD Social History Tobacco Use Types Packs/Day [...] on filedocumented in this encounter Care Teams Cargoman Relationship Specialty Start Date End Date Mansi Carias MD [address] [place] [address] [phone] PCP - General 07/07/06 Jennie Milian MD [address] [place] [address] [phone] Specialist Cardiology 09/13/22 documented as of this encounter
--- OUTSIDE RECORDS SUMMARY | 2024-04-02 15:50 | XMS_ITS | Encounter Summary ---
Author Organization [facility] Address [address] [place] [address] Care Team Providers Care Diamond Sorter Name Role Phone Mansi Carias MD Primary Care Provider [phone] Jennie Milian MD Unavailable [phone] Encounter Details Date Type Department Care Team Description 08/12/2015 Hospital Medical Records [address] [place] [address] Fausto Armando MD Social History Tobacco Use [...] filedocumented in this encounter Care Teams Diamond Sorter Relationship Specialty Start Date End Date Mansi Carias MD [address] [place] [address] [phone] PCP - General 07/07/06 Jennie Milian MD [address] [place] [address] [phone] Specialist Cardiology 09/13/22 documented as of this encounter
--- OUTSIDE RECORDS SUMMARY | 2024-04-02 15:50 | XMS_ITS | Encounter Summary ---
Author Organization [facility] Address [address] [place] [address] Care Team Providers Care Talent Engineer Name Role Phone Mansi Carias MD Primary Care Provider Jennie Milian MD Unavailable [phone] Reason for Visit * Reason Comments E-prescribe Rx Request Encounter Details Date Type Department Care Team Description 10/16/2023 Refill Adult Medicine [facility] [address] [place] [address] [phone] Bruno Townsend, PAJennaC [address] [place] [phone] E-prescribe Rx Request Social History Tobacco Use [...] on filedocumented in this encounter Care Teams Talent Engineer Relationship Specialty Start Date End Date Mansi Carias MD [address] [place] [address] [phone] PCP - General 07/07/06 Jennie Milian MD [address] [place] [address] [phone] Specialist Cardiology 09/13/22 documented as of this encounter
--- OUTSIDE RECORDS SUMMARY | 2024-04-02 15:50 | XMS_ITS | Encounter Summary ---
Author Organization [facility] Address [address] [place] [address] Care Team Providers Care Calendar Control Clerk Blood Bank Name Role Phone Mansi Carias MD Primary Care Provider [phone] Jennie Milian MD Unavailable [phone] Reason for Visit * Reason Onset Date Comments Note, Other 01/01/2015 Encounter Details Date Type Department Care Team Description 01/01/2015 Telephone Adult Medicine [address] [phone] Mansi Carias MD [address] [place] [address] [phone] Note, Other Social History Tobacco Use Types Packs/Day Years [...] encounter Miscellaneous Notes * Telephone Encounter - Luda Araujo M.A. - 01/01/2015 2:00 PM EDT Pt colonscopy is in the emr under media tab Please update pts record * Telephone Encounter - Elva Rosario - 01/01/2015 12:04 PM EDT Caller requesting call back from provider: Is the caller the patient? YES If caller is not the patient, what is the callers name? N/A Callers relationship to patient? N/A If person calling is not the patient themselves, is there a verbal release in FYI or permanent comments for this person: NO Reason for call back: Patient calling when she was in to see Dr. Carias 12/31/14 he was trying to tell her she was due for colonoscopy and she told him she would call with when she had it last it was @ [facility] 09/17/13. Caller offered to speak with the nurse for assistance: YES Response: Patient offered to speak with nurse for assistance and patient agreed. Message forwarded to nurse. documented in this encounter Plan of Treatment Not on file documented as of this encounter Visit Diagnoses Not on filedocumented in this encounter Care Teams Calendar Control Clerk Blood Bank Relationship Specialty Start Date End Date Mansi Carias MD [address] [place] [phone] PCP - General 07/07/06 Jennie Milian MD [address] [place] [address] [phone] Specialist Cardiology 09/13/22 documented as of this encounter
--- OUTSIDE RECORDS SUMMARY | 2024-04-02 15:50 | XMS_ITS | Encounter Summary ---
Author Organization [facility] Address [address] [place] [address] Care Team Providers Care Experimental Aircraft Mechanic Name Role Phone Mansi Carias MD Primary Care Provider [phone] Jennie Milian MD Unavailable [phone] Encounter Details Date Type Department Care Team Description 11/13/2019 Precision Dancer Report Medical Records [address] [place] [address] [id number] Anthony Brown MD Social History Tobacco Use [...] on filedocumented in this encounter Care Teams Experimental Aircraft Mechanic Relationship Specialty Start Date End Date Mansi Carias MD [address] [place] [address] [phone] PCP - General 07/07/06 Jennie Milian MD [address] [place] [address] [phone] Specialist Cardiology 09/13/22 documented as of this encounter
--- OUTSIDE RECORDS SUMMARY | 2024-04-02 15:50 | XMS_ITS | Clinical Summary ---
Author Organization [facility] Address [address] [place] [address] Care Team Providers Care Duct Layer Helper Name Role Phone Mansi Carias MD Primary Care Provider [phone] Jennie Milian MD Unavailable [phone] Allergies Active Allergy Reactions Severity Noted Date Comments Penicillin G Potassium Rash/Dermatitis 07/11/19 07 Sulfa Drugs Rash/Dermatitis 07/10/2006 Medications Medication Sig Dispensed Refills Start Date End Date Status MULTIVITAMIN OR None Entered 0 Active [place] 3 1000 MG CAPS Take by mouth [...] surveillance is indicated as it will not traveler changer however we will occasionally repeat echocardiograms to assess her aortic insufficiency as this can be intervened upon in a minimally invasive fashion-this will serve to get a rough estimate of the ascending aorta as well for what its worth Coronary artery disease invo lving [place] coronary artery of [place] heart without angina pectoris 12/02/2022 Overview: - [...] 09/29/2022 performed after her ER visit to [facility] for lower back pain radiating to the [...] thyroid 09/18/2006 Asthma 07/10/2006 Overview: Follows with mobility architect manager in [place], Dr. Jignesh reyez DJD 07/10/2006 Overview: IMO [...] Daughter 1 thyroid ca lymphoma Daughter 2 [place] Father from [place] at age 70 black [...] Effective Dates Phone Address Type [place] [id number] 08/05/1999-Pre sent [phone] [address] [place] [address] MEDICARE [id number] [facility] MEDICARE SUPP $0 [place] [id number] 03/06/2016-Pre sent [phone] [facility] [address] [place] [address] MEDICARE SUPPLEMENTAL MEDICARE-[facility] MCR F 1+/50% [id number] 08/05/1999-Pre sent [phone] [address] [place] [address] MEDICARE [id number] [facility] MEDICARE SUPP $0 [place] [id number] 03/06/2016-Pre sent [facility] [address] [place] [phone] MEDICARE [place]AL [place] [id number] 08/04/2022-Pre sent [address] [place] [address] MEDICARE [id number] [facility] MEDICARE SUPP $0 [place] [id number] 08/04/2022-Pre sent [facility] [address] [place] [phone] MEDICARE SUPPLEMENTAL Care Teams Duct Layer Helper Relationship Specialty Start Date End Date Mansi Carias MD [address] [place] [phone] PCP - General 07/07/06 Jennie Milian MD [address] [place] [phone] Specialist Cardiology 09/13/22
--- OUTSIDE RECORDS SUMMARY | 2024-04-02 15:50 | XMS_ITS | Encounter Summary ---
Author Organization [facility] Address [address] [place] [address] Care Team Providers Care Stripper Preliminary Name Role Phone Mansi Carias MD Primary Care Provider [phone] Jennie Milian MD Unavailable [phone] Reason for Visit * Reason Onset Date Comments Provider Call Back 01/01/2015 Encounter Details Date Type Department Care Team Description 01/01/2015 Telephone Nephrology - [place] [address] [place] [address] Anthony Brown MD Provider Call Back Social [...] give her bp meds. Please call at: [phone]. documented in this encounter Plan of Treatment Not on file documented as of this encounter Visit Diagnoses Not on filedocumented in this encounter Care Teams Stripper Preliminary Relationship Specialty Start Date End Date Mansi Carias MD [address] [place] [address] [phone] PCP - General 07/07/06 Jennie Milian MD [address] [place] [address] [phone] Specialist Cardiology 09/13/22 documented as of this encounter
--- OUTSIDE RECORDS SUMMARY | 2024-04-02 15:50 | XMS_ITS | Encounter Summary ---
Author Organization [facility] Address [address] [place] [address] Care Team Providers Care Collar Cutter Name Role Phone Mansi Carias MD Primary Care Provider [phone] Jennie Milian MD Unavailable [phone] Encounter Details Date Type Department Care Team Description 08/24/2010 Hospital Medical Records [address] [place] [phone] Slava Fernandez Social History Tobacco Use Types Packs/Day Years [...] on filedocumented in this encounter Care Teams Collar Cutter Relationship Specialty Start Date End Date Mansi Carias MD [address] [place] [address] [phone] PCP - General 07/07/06 Jennie Milian MD [address] [place] [address] [phone] Specialist Cardiology 09/13/22 documented as of this encounter
--- OUTSIDE RECORDS SUMMARY | 2024-04-02 15:50 | XMS_ITS | Encounter Summary ---
Author Organization [facility] Address [address] [place] [address] Care Team Providers Care Supervisor Painting Shipyard Name Role Phone Mansi Carias MD Primary Care Provider [phone] Jennie Milian MD Unavailable [phone] Reason for Visit * Reason Onset Date Comments Faxed Refill 06/22/2020 Encounter Details Date Type Department Care Team Description 06/22/2020 Refill Adult Medicine [address] [phone] Mansi Carias MD [address] [place] [address] [phone] Faxed Refill Social History Tobacco Use Types [...] / Plan: [place] / Product Type: MEDICARE [id number] documented in this encounter Plan of Treatment Not on file documented as of this encounter Visit Diagnoses Not on filedocumented in this encounter Care Teams Supervisor Painting Shipyard Relationship Specialty Start Date End Date Mansi Carias MD [address] [place] [address] [phone] PCP - General 07/07/06 Jennie Milian MD [address] [place] [address] [phone] Specialist Cardiology 09/13/22 documented as of this encounter
--- OUTSIDE RECORDS SUMMARY | 2024-04-02 15:50 | XMS_ITS | Encounter Summary ---
Author Organization [facility] Address [address] [place] [address] Care Team Providers Care Skip Hoist Operator Name Role Phone Mansi Carias MD Primary Care Provider [phone] Jennie Milian MD Unavailable [phone] Encounter Details Date Type Department Care Team Description 08/16/2012 Business Doc Medical Records [address] [place] [phone] Abstract, Provider Social History Tobacco Use Types [...] on filedocumented in this encounter Care Teams Skip Hoist Operator Relationship Specialty Start Date End Date Mansi Carias MD [address] [place] [address] [phone] PCP - General 07/07/06 Jennie Milian MD [address] [place] [address] [phone] Specialist Cardiology 09/13/22 documented as of this encounter
== END 2024-04-02 15:39 | disposition home or self-care (01) ==
DX: M75.22 Bicipital tendinitis, left shoulder (principal)
CPT/HCPCS: 99213

== ENCOUNTER → 2024-04-02 14:57 | Outpatient (BNV) | payer MEDICARE, SELFPAY | PROVIDERS: Visit Provider Radiology Diagnostic Radiology | DX: M25.512 Pain in left shoulder (principal) | CPT/HCPCS: 73030 ==